=== PATIENT | female | born 1985 | race Caucasian/White ===

== ENCOUNTER 2022-12-09 10:44 | Outpatient (CLI) | payer OTHER, SELFPAY ==
[2022-12-09 11:01] LABS: Basophils Absolute Auto 0.1 K/mm3 (0.0-0.1); Basophils Percent Auto 0.8 % (0.2-1.2); Eosinophils Absolute Auto 0.1 K/mm3 (0-0.3); Eosinophils Percent Auto 2.1 % (0-4.4); Hematocrit 45.6 % (37.0-47.0); Immature Granulocyte Absolute 0.01 K/mm3 (0.00-0.031); Immature Granulocyte Percent A 0.2 % (0-0.5); Lymphocytes Absolute Auto 2.16 K/mm3 (0.9-3.2); Lymphocytes Percent Auto 32.6 % (18.3-44.2); Mean Corpuscular HGB Conc 32.9 g/dl (32-36); Mean Corpuscular Volume 97.2 fl (80-100); Mean Platelet Volume 9.8 fl (7.4-10.4); Monocytes Absolute Auto 0.4 K/mm3 (0.1-0.6); Monocytes Percent Auto 5.7 % (2.6-8.5); Neutrophils Absolute Auto 3.9 K/mm3 (1.3-6.7); Neutrophils Percent Auto 58.6 % (45.5-73.1); Platelet Count Result 224 k/mm3 (150-375); Red Blood Count 4.69 M/mm3 (4.2-5.4); Red Cell Distribution Width 12.2 % (11.5-14.5); White Blood Count 6.6 K/mm3 (4.5-10.0)
[2022-12-09 12:22] LABS: Iron 130 ug/dL (37-170)
[2022-12-09 12:25] LABS: Alanine Aminotransferase 25 U/L (6-35); Albumin Level 4.4 g/dL (3.5-5.1); Alkaline Phosphatase 55 U/L (38-126); Anion Gap 6 mmol/L (8-16); Aspartate Amino Transferase 26 U/L (14-36); Bilirubin,Total 0.5 mg/dL (0.2-1.3); Blood Urea Nitrogen 8 mg/dL (7-17); Carbon Dioxide 30 mmol/L (22-30); Chloride 102 mmol/L (98-107); Estimated Glomerular Filt Rate > 60; Glucose 77 mg/dL (65-110); Potassium 3.8 mmol/L (3.4-5.0); Sodium 138 mmol/L (137-145)
[2022-12-09 12:32] LABS: Percent Iron Saturation 50 % (20-50)
[2022-12-09 13:31] LABS: Folic Acid 8.8 ng/mL (2.76->20)
== END 2022-12-09 10:45 | disposition home or self-care (01) ==
LOC: ANHLAB 10:46
PROVIDERS: PCP Internal Medicine; Visit Provider Internal Medicine Hematology & Oncology
DX: E83.110 Hereditary hemochromatosis (principal); E83.19 Other disorders of iron metabolism
CPT/HCPCS: 36415; 80053; 82607; 82728; 82746; 83540; 83550; 85025

== ENCOUNTER 2023-09-26 14:05 | Outpatient (CLI) | payer OTHER, SELFPAY ==
[2023-09-26 14:19] LABS: Basophils Absolute Auto 0.1 K/mm3 (0.0-0.1); Basophils Percent Auto 0.8 % (0.2-1.2); Eosinophils Absolute Auto 0.2 K/mm3 (0-0.3); Eosinophils Percent Auto 2.4 % (0-4.4); Hematocrit 45.6 % (37.0-47.0); Hemoglobin 15.8 g/dL (12.0-15.0); Immature Granulocyte Absolute 0.02 K/mm3 (0.00-0.031); Immature Granulocyte Percent A 0.3 % (0-0.5); Lymphocytes Percent Auto 26.8 % (18.3-44.2); Mean Corpuscular HGB Conc 34.6 g/dl (32-36); Mean Corpuscular Hemoglobin 32.2 pg (26-34); Mean Corpuscular Volume 92.9 fl (80-100); Mean Platelet Volume 8.9 fl (7.4-10.4); Monocytes Absolute Auto 0.4 K/mm3 (0.1-0.6); Monocytes Percent Auto 5.2 % (2.6-8.5); Neutrophils Absolute Auto 5.1 K/mm3 (1.3-6.7); Neutrophils Percent Auto 64.5 % (45.5-73.1); Platelet Count Result 303 k/mm3 (150-375); Red Blood Count 4.91 M/mm3 (4.2-5.4); Red Cell Distribution Width 12.1 % (11.5-14.5); White Blood Count 7.9 K/mm3 (4.5-10.0)
[2023-09-26 16:44] LABS: Iron 152 ug/dL (37-170)
[2023-09-26 16:47] LABS: Alanine Aminotransferase 23 U/L (6-35); Albumin Level 4.6 g/dL (3.5-5.1); Alkaline Phosphatase 62 U/L (38-126); Anion Gap 9 mmol/L (4-12); Aspartate Amino Transferase 22 U/L (14-36); Bilirubin,Total 0.7 mg/dL (0.2-1.3); Blood Urea Nitrogen 9 mg/dL (7-17); Calcium 9.6 mg/dL (8.4-10.2); Carbon Dioxide 26 mmol/L (22-30); Chloride 102 mmol/L (98-107); Estimated Glomerular Filt Rate > 60; Glucose 99 mg/dL (65-110); Sodium 137 mmol/L (137-145)
[2023-09-26 16:54] LABS: Percent Iron Saturation 55 % (20-50)
== END 2023-09-26 14:06 | disposition home or self-care (01) ==
LOC: ANHLAB 14:07
PROVIDERS: Visit Provider Internal Medicine Hematology & Oncology
DX: E83.110 Hereditary hemochromatosis (principal)
CPT/HCPCS: 36415; 80053; 82728; 83540; 83550; 85025

== ENCOUNTER 2024-03-27 12:54 | Outpatient (CLI) | payer OTHER, SELFPAY ==
[2024-03-27 13:10] LABS: Hematocrit 45.6 % (37.0-47.0); Hemoglobin 15.4 g/dL (12.0-15.0); Mean Corpuscular HGB Conc 33.8 g/dl (32-36); Mean Corpuscular Hemoglobin 31.4 pg (26-34); Mean Corpuscular Volume 93.1 fl (80-100); Mean Platelet Volume 8.6 fl (7.4-10.4); Platelet Count Result 336 k/mm3 (150-375); Red Cell Distribution Width 12.4 % (11.5-14.5); White Blood Count 7.2 K/mm3 (4.5-10.0)
[2024-03-27 19:38] LABS: Iron 123 ug/dL (37-170)
[2024-03-27 19:49] LABS: Percent Iron Saturation 44 % (20-50)
== END 2024-03-27 12:55 | disposition home or self-care (01) ==
LOC: ANHLAB 12:55
PROVIDERS: PCP Internal Medicine; Visit Provider Internal Medicine Hematology & Oncology
DX: E83.110 Hereditary hemochromatosis (principal)
CPT/HCPCS: 36415; 82728; 83540; 83550; 85027

== ENCOUNTER 2024-08-23 10:34 | Outpatient (CLI) | payer OTHER, SELFPAY ==
[2024-08-23 10:48] LABS: Basophils Absolute Auto 0.1 K/mm3 (0.0-0.1); Basophils Percent Auto 1.1 % (0.2-1.2); Eosinophils Absolute Auto 0.2 K/mm3 (0-0.3); Hematocrit 45.2 % (37.0-47.0); Hemoglobin 15.6 g/dL (12.0-15.0); Immature Granulocyte Absolute 0.02 K/mm3 (0.00-0.031); Immature Granulocyte Percent A 0.3 % (0-0.5); Lymphocytes Absolute Auto 2.33 K/mm3 (0.9-3.2); Mean Corpuscular HGB Conc 34.5 g/dl (32-36); Mean Corpuscular Hemoglobin 31.7 pg (26-34); Mean Corpuscular Volume 91.9 fl (80-100); Mean Platelet Volume 8.7 fl (7.4-10.4); Monocytes Absolute Auto 0.4 K/mm3 (0.1-0.6); Monocytes Percent Auto 5.2 % (2.6-8.5); Neutrophils Absolute Auto 4.6 K/mm3 (1.3-6.7); Neutrophils Percent Auto 60.4 % (45.5-73.1); Platelet Count Result 318 k/mm3 (150-375); Red Blood Count 4.92 M/mm3 (4.2-5.4); Red Cell Distribution Width 11.8 % (11.5-14.5); White Blood Count 7.5 K/mm3 (4.5-10.0)
[2024-08-23 13:30] LABS: Iron 195 ug/dL (37-170)
[2024-08-23 13:39] LABS: Percent Iron Saturation 73 % (20-50)
--- OUTSIDE RECORDS SUMMARY | 2024-08-24 11:51 | XMS_ITS | CONTINUITY OF CARE DOCUMENT ---
Author Name angiegerardo angiegerardo Address Unknown Organization [facility] Address [id number] [place] [address] [address] [place] [address] Phone [phone] Care Team Providers Care Foreign Banknote Teller Trader Name Role Phone Berto Woodruff MD Unavailable [phone] ANNA MARIE NELSON MD Unavailable ANNA MARIE NELSON MD Unavailable [phone] PROBLEMS Condition Status Date Provider Notes Dizziness active Berto Woodruff MD Family History of CVA or Stroke: active ? Berto Woodruff MD ENCOUNTERS Date Type Provider Location Encounter Diag nosis - In-person encounter Office Visit Berto Woodruff MD [place] [facility] - In-person encounter Office Visit Berto Woodruff MD [facility] Family History of CVA or Stroke:Dizziness VITAL SIGNS Date Observation Value Provider blood pressure, diastolic 59 mm[Hg] De eduardo Farley blood pressure, systolic 97 mm[Hg] Sandy manning Farley blood pressure, diastolic, left arm 59 mm [Hg] Shaneka Farley blood pressure, systolic, left arm 97 mm[ Hg] Shaneka Farley blood pressure, diastolic, right arm 57 m m[Hg] Shaneka Farley blood pressure, systolic, right arm 101 m m[Hg] Shaneka Farley Body Mass Index (Ratio) 25.06 kg/m2 Brittney calderon pulse rate 84 /min Shaneka Farley oxygen saturation, oximetry 98 % Shaneka Farley respiratory rate E&M 14 /min Shaneka Chengann weight E&M 160 [lb_av] Shaneka Farley Body Mass Index (Ratio) 25.68 kg/m2 [facility] blood pressure, diastolic, left arm 61 mm [Hg] Aneatris Brown blood pressure, systolic, left arm 116 mm [Hg] [facility] blood pressure, diastolic, right arm 75 m m[Hg] [facility] blood pressure, systolic, right arm 111 m m[Hg] [facility] blood pressure, diastolic 75 mm[Hg] [facility] blood pressure, systolic 111 mm[Hg] [facility]ne [facility] pulse rate 79 /min [facility] oxygen saturation, oximetry 99 % Aneatris Dk respiratory rate E&M 18 /min Aneatri s Dk weight E&M 164 [lb_av] [facility] height E&M 67 [in_i] Renae Root ALLERGIES No Known Drug Allergies HISTORY OF MEDICATION USE Medication Status Instructions Dates Provider Indications Com ments MECLIZINE HCL 12.5 MG ORAL TABLET active One tab three times daily Berto Woodruff MD TYLENOL PM EXTRA STRENGTH active 2 tabs as needed Renae Root MOTRIN IB 200 MG ORAL TABLET active 600mg as needed Renae Root SOCIAL HISTORY Date Observation Value Provider social history reviewed E&M reviewed - no changes required Berto Woodruff MD smoking status Never smoker Shaneka stephenson smoking status Never smoker Renae stephenson FAMILY HISTORY Family Member Condition Father Family History of CV A or Stroke: INSURANCE PROVIDERS Payer name Policy type / Coverage type [place] red democr[employer] ID [facility] Other [id number] TREATMENT PLAN Date Name Carotid Duplex Bilat eral Mobile Cardiac Tele Complete Echo
--- OUTSIDE RECORDS SUMMARY | 2024-08-24 11:51 | XMS_ITS | Encounter Summary ---
Author Organization [facility] Address [address] [place] [address] Care Team Providers Care Cell Tuber Hand Name Role Phone Gregg Martinez MD Primary Care Provider [phone] Reason for Visit * Reason Onset Date Comments Feeling weak 08/23/2024 Encounter Details Date Type Department Care Team (Late st Contact Info) Description 08/23/2024 Telephone [facility] Oncology and Hematology - [place] [address] [place] [address] [facility] [address] [place] [address] Ethan Delgado MD [address] [facility] [address] [place] [address] Feeling weak Social History Tobacco Use Types Packs/Day Years Used Date Smoking Tobacco: Never Smokeless Tobacco: Never Alcohol Use Standard Drinks/Week Comments Yes 0 (1 standard drink = 0.6 oz pur e alcohol) occasionlly Comments No Sex and Gender Information Value Date Recorded Sex Assigned at Not on file Legal Sex Female 4:09 PM CDT Gender Identity Not on file Sexual Orientation Not on file documented as of this encounter Miscellaneous Notes * Telephone Encounter - Juan Baez CMA - 08/23/2024 9:26 AM CDT Patient called stating that she hasn't been feeling good. Patient states that she's been feeling very weak and sluggish with a rash on her face along with mild chest pain . Pt has an appointment with us in the beginning of September. I went ahead and told the patient to get her labs drawn and once I get them back I will talk with Dr. Delgado to see what he would like to do. Patient acknowledged understanding documented in this encounter Plan of Treatment Upcoming Encounters Date Type Department Care Team (Late st Contact Info) Description 09/26/2024 2:15 PM CDT Office Visit [facility] Oncology and Hematology - [place] [address] [facility] [address] [place] [address] Ethan Delgado MD [address] [facility] [address] [place] [address] documented as of this encounter Visit Diagnoses Not on filedocumented in this encounter Care Teams Cell Tuber Hand Relationship Specialty [place] [address] [place] [address] PCP - General Internal Medicine 01/06/20 documented as of this encounter
--- OUTSIDE RECORDS SUMMARY | 2024-08-24 11:51 | XMS_ITS | Clinical Summary ---
Author Organization [facility] Justin nguyen Kiersten Address [address] [place] [address] Care Team Providers Care Polisher Aluminum Name Role Phone Gregg Martinez MD Primary Care Provider [phone] Allergies Active Allergy Reactions Criticality Noted Date Comments Shrimp Hives High 01/06/2020 Medications No known medications Active Problems Problem Noted Date Diagnosed Date Hereditary hemochromatosis 01/27/2020 Encounters Date Type Department Care Team Description 08/23/2024 Orders Only [facility] Oncology and Hematology [facility] [address] [place] [address] Ethan Delgado MD Hereditary hemochromatosis (Primary Dx) 08/23/2024 Telephone [facility] Oncology [facility] [address] [place] [address] Ethan Delgado MD Feeling weak 08/06/2024 External Device Data STL ABSTRACTION Provider, Abstract 07/10/2024 External Device Data STL ABSTRACTION Provider, Abstract 07/10/2024 External Device Data STL ABSTRACTION Provider, Abstract 06/29/2024 External Device Data STL ABSTRACTION Provider, Abstract 06/29/2024 External Device Data STL ABSTRACTION Provider, Abstract 06/26/2024 External Device Data STL ABSTRACTION Provider, Abstract 06/12/2024 External Device Data STL ABSTRACTION Provider, Abstract from Last 3 Months Family History Medical History Relation Name Comments Cancer Father Relation Name Status Comments Daughter Alive Father Mother Alive Sister 1 Alive Sister 2 Alive Son Alive Social History Tobacco Use Types Packs/Day Years Used Date Smoking Tobacco: Never Smokeless Tobacco: Never Tobacco Cessation:Counseling Given: Not Answered Alcohol Use Standard Drinks/Week Comments Yes 0 (1 standard drink = 0.6 oz pur e alcohol) occasionlly Comments No Sex and Gender Information Value Date Recorded Sex Assigned at Not on file Legal Sex Female 4:09 PM CDT Gender Identity Not on file Sexual Orientation Not on file Last Filed Vital Signs Vital Sign Reading Time Taken Comments Blood Pressure 109/69 03/28/2024 3:31 PM ANESTHESIOLOGIST ASSISTANT CERTIFIED Pulse 70 03/28/2024 3:31 PM ANESTHESIOLOGIST ASSISTANT CERTIFIED Temperature 36.4 C (97.5 F) 03/28/2024 3:31 PM ANESTHESIOLOGIST ASSISTANT CERTIFIED Respiratory Rate 16 03/28/2024 3:31 PM ANESTHESIOLOGIST ASSISTANT CERTIFIED Oxygen Saturation 98% 03/28/2024 3:31 PM ANESTHESIOLOGIST ASSISTANT CERTIFIED Inhaled Oxygen Concentration - - Weight 96.3 kg (212 lb 6.4 oz) 03/28/2024 3:31 P M ANESTHESIOLOGIST ASSISTANT CERTIFIED Height 170.2 cm (5' 7 ) 01/27/2020 2:02 PM CDT Body Mass Index 33.27 01/27/2020 2:02 PM CDT Plan of Treatment Upcoming Encounters Date Type Department Care Team (Late st Contact Info) Description 09/26/2024 2:15 PM CDT Office Visit [facility] Oncology and Hematology - [place] [address] [facility] [address] [place] [address] Ethan Delgado MD [address] [facility] [address] [place] [address] Health Maintenance Due Date Last Done Comments Pre-Diabetes and Diabetes Screening 1986 DTAP/TDAP/TD VACCINES (1 - Tdap) 2005 HEPATITIS B VACCINES (1 of 3 - 19+ 3-dose series) 2005 HPV/Cotest (21-29) 11/30/2007 HPV/Cotest (30-65) 2016 INFLUENZA VACCINE (#1) 2023 CERVICAL CANCER SCREENING 06/23/2025 PAP SMEAR 06/23/2025 06/23/2022 HPV VACCINES Aged Out No longer eligi ble based on patient's age to complete this topic Procedures Procedure Name Priority Date/Time Associated Diagnosis Comments CBC WITH DIFFERENTIAL Routine 08/23/2024 1:36 PM CDT from Last 3 Months Results * CBC WITH DIFFERENTIAL (08/23/2024 1:36 PM CDT) Blood us Ethan Delgado MD HEMATOLOGY ORDERABLES Final Res ult from Last 3 Months Insurance [place] [id number] Care Teams Polisher Aluminum Relationship Specialty Start Date End Date Gregg Martinez MD [address] [place] [id number] PCP - General Internal Medicine 01/06/20
--- OUTSIDE RECORDS SUMMARY | 2024-08-24 11:51 | XMS_ITS | Encounter Summary ---
Author Organization [facility] Address [address] [place] [address] Care Team Providers Care Log Hauler Name Role Phone Gregg Martinez MD Primary Care Provider [phone] Encounter Details Date Type Department Care Team (Late Contact Info) Description 08/23/2024 Orders Only [facility] Oncology and Hematology [address] [place] [address] Ethan Delgado MD [facility] [address] [place] [address] Hereditary hemochromatosis (Primary Dx) Social History Tobacco Use Types Packs/Day Years [...] on file documented as of this encounter Plan of Treatment Upcoming Encounters Date Type Department Care Team (Late Contact Info) Description 09/26/2024 2:15 PM CDT Office Visit [facility] Oncology and Hematology - [place] [address] [place] [address] Ethan Delgado MD [address] [place] [address] Scheduled Orders Name Type Priority Associated Diagnoses Orde r Schedule CBC WITH DIFFERENTIAL Lab Routine Hereditary hemochromatosis Expected: 08/23/2024, Expires: 08/23/2025 FERRITIN Lab Routine Hereditary hemochromatosis Expected: 08/23/2024, Expires: 08/23/2025 IRON, TIBC, AND PERCENT SATURATION Lab Routine Hereditary hemochromatosis Expected: 08/23/2024, Expires: 08/23/2025 documented as of this encounter Procedures Procedure Name Priority Date/Time Associated Diagnosis Comments CBC WITH DIFFERENTIAL Routine 08/23/2024 1:36 PM CDT documented in this encounter Results * CBC WITH DIFFERENTIAL (08/23/2024 1:36 PM CDT) Blood Ethan Delgado MD HEMATOLOGY ORDERABLES Final Res ult documented in this encounter Visit Diagnoses Diagnosis Hereditary hemochromatosis- Primary documented in this encounter Care Teams Log Hauler Relationship Specialty Start Date End Date Gregg Martinez MD [address] [place] [phone] PCP - General Internal Medicine 01/06/20 documented as of this encounter
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
--- OUTSIDE RECORDS SUMMARY | 2024-08-24 11:52 | XMS_ITS | Clinical Summary ---
Author Organization [facility] Address [address] [place] [address] Phone Care Team Providers Care Principal Ios Developer Name Role Phone Gregg Martinez MD Primary Care Provider [phone] Social History Tobacco Use Types Packs/Day Years Used Date Smoking Tobacco: Never Assessed Comments Unknown Sex and Gender Information Value Date Recorded Sex Assigned at Not on file Legal Sex Female 11:36 PM CDT Gender Identity Not on file Sexual Orientation Not on file Plan of Treatment Health Maintenance Due Date Last Done Comments Hepatitis C Virus (HCV) Screening 1986 TdaP Immunization 1986 Hepatitis B Immunization (1 of 3 - 19+ 3-dose series) 2005 Pap Smear 11/30/2007 Cervical Cancer Screening (CCS) 2016 HPV/Cotest 2016 Influenza Immunization (#1) 2023 SARS-COV-2 Immunization ( season) 2023 Respiratory Syncytial Virus (RSV) Immunization (Adult) (1 - 1-dose 75+ series) 2061 Meningococcal Immunization (ACWY) Aged Out No longer eligible based on patient's age to complete this topic Pneumococcal Immunization Combined Aged Out No longer eligible based on patient's age to complete this topic Rotavirus Immunization Aged Out No lo nger eligible based on patient's age to complete this topic Insurance [facility] Care Teams Principal Ios Developer Relationship Specialty Start Date End Date Gregg Martinez MD [address] [place] [address] PCP - General Internal Medicine 09/20/23
--- OUTSIDE RECORDS SUMMARY | 2024-08-24 11:52 | XMS_ITS | Data Portability ---
Author Organization [facility] Address [address] [place] [address] Care Team Providers Care Online Editor Name Role Phone ANNA MARIE NELSON Primary Care Provider [phone] Assessment Encounter Date Assessment Date Assessment LastModified by Organization Details LastModified Time 12/19/2019 12/19/2019 Time spent in visit is a total of 15 mins with at least 50% of visit consisting of counseling and review of plan of care. [email or web address] Not available 12/19/2019 12:29:39 06/23/2022 06/23/2022 Annual gynecological exam performed. Patient will come back in a year unless there are new symptoms. [email or web address] Not available 06/23/2022 09:45:45 Plan of Treatment Reminders Order Date Submit Date Provider Last Modified By Organization Details Last Modified Time Details Appointments None recorded. Lab vitamin B12, serum 2019 020 [place] [facility]), [address] [facility] , [address], [place], [address], 0 00:37:32 CBC w/ auto diff [address] [facility] ([facility]), [address] [facility] [address] , [address], [place], [address], 0 00:37:30 ferritin, serum or plasma 2019 020 [place] [facility]), [address] [facility] [address], [place], [address], 0 00:37:33 folate, serum 2019 020 [facility] ([facility]), [address] [facility] [address], [place], [address], 0 00:37:33 TIBC (total iron-bindin g capacity), serum 2019 020 [facility] ([facility]), [address] [facility] [address], [place], [address], 0 00:37:32 iron, serum 2019 020 [facility] ([facility]), [address] [facility] [address], [place], [address], 0 00:37:31 retic count, blood 2019 020 [place] [facility] ([facility]), [address] [facility] [address], [place], [address], 0 00:37:30 CMP, serum or plasma 2019 020 [facility] ([facility]), [address] [facility] [address], [place], [address], 0 00:37:31 CBC 2019 020 [facility] ([facility]), [address] [facility] [address], [place], [address], 0 17:34:17 TSH, serum or plasma 2019 020 [facility] ([facility]), [address] [facility] , [address], [place], [address], 0 00:37:34 vitamin D, 25-hydroxy, total, serum 2019 020 [facility]), [address] [facility] [address] , [address], [place], [address], 0 00:37:34 HbA1c (hemoglobin A1c), blood 2019 020 [facility]), [address] [facility] [address] , [address], [place], [address], 0 00:37:33 Referral urogynecolo gist referral 2022 023 MOSESAURA Farley MD, [address] [place] [address] [address], [address], [place], [address], 3 05:01:35 pelvic floor therapy referral 2022 023 [facility], [address], [address], [place], [address], 3 05:01:35 Procedures None recorded. Surgeries None recorded. Imaging None recorded. Medication Orders Xulane 150 mcg-35 mcg/24 hr transdermal patch 2022 023 [id number], [address] [place], [address], 3 10:15:42 Patient TargetsNo targets recorded. Patient Instructions Encounter Date Encounter Id Patient Instructions Last Modified By Organization Details Last Modified Time 12/10/2019 [id number] [email or web address] Not available 14:42:34 12/19/2019 [id number] [email or web address] Not available 12:29:54 Reason for Referral Urogynecologist Referral for Female stress incontinence Referring Physician: Marianela Chowdhury, [employer], Encounter Date: 06/23/2022 Pelvic Floor Therapy Referra l for Female stress incontinence Stress incontinence Referring Physician: Marianela Chowdhury, [employer], Encounter Date: 06/23/2022 Results Created Date Observation Date Name Description Value Unit Range Abnormal Flag Note LastModifiedBy Organization Detail LastModifiedTime 12/10/19 20 12/11/2019 CBC w/ auto diff WBC 5.4 K/uL 3.8-11 .5 Not Available [facility]) [address] [place] [address] Dr [address], [place], [address], 12/12/2019 00:37:29 12/10/1912/11/2019 CBC w/ auto diff red blood cell count (RBC) 4.37 M/mm3 3.60-5 .30 Not Available [facility]) [address] [place] [address] Dr [address], [place], [address], 12/12/2019 00:37:29 12/10/1912/11/2019 CBC w/ auto diff hemoglobin (HGB) 14.5 gm/dL 11.5-1 5.5 Not Available [facility]) [address] [place] [address] Dr [address], [place], [address], 12/12/2019 00:37:29 12/10/1912/11/2019 CBC w/ auto diff hematocrit (HCT) 41.5 % 35.2-4 6.4 Not Available [facility] ([facility]) [address] [place] [address] Dr [address], [place], [address], 12/12/2019 00:37:29 12/10/1912/11/2019 CBC w/ auto diff MCV 95.0 fL 79.0-9 9.0 Not Available [facility]) [address] [place] [address] Dr [address]ume, [place], [address], 12/12/2019 00:37:29 12/10/19 20 12/11/2019 CBC w/ auto diff MCH 33.2 pg 26.9-3 5.0 Not Available [facility] ([facility]) [address] [place] [address] Dr [address], [place], [address], 12/12/2019 00:37:29 12/10/19 20 12/11/2019 CBC w/ auto diff MCHC 34.9 g/dL 30.4-3 4.8 high Not Available [facility] ([facility]) [address] [place] [address] Dr [address], [place], [address], 12/12/2019 00:37:29 12/10/1912/11/2019 CBC w/ auto diff RDW 41.7 fL 38.6-5 3.8 Not Available [facility] ([facility]) [address] [place] [address] Dr [address], [place], [address], 12/12/2019 00:37:29 12/10/19 20 12/11/2019 CBC w/ auto diff platelet count 291 K/cum m 137-39 7 Not Available [facility] ([facility]) [address] [place] [address] Dr [address], [place], [address], 12/12/2019 00:37:29 12/10/19 20 12/11/2019 CBC w/ auto diff neutrophils automated 64.1 % 41.0-7 7.0 Not Available [facility] ([facility]) [address] [place] [address] Dr [address], [place], [address], 12/12/2019 00:37:29 12/10/19 20 12/11/2019 CBC w/ auto diff lymphocytes automated 25.8 % 14.0-4 8.0 Not Available [facility] ([facility]) [address] [place] [address] Dr [address], [place], [address], 12/12/2019 00:37:29 12/10/19 20 12/11/2019 CBC w/ auto diff monocytes automated 6.4 % 4.0-13 .0 Not Available [facility]) [address] [place] [address] Dr [address]ume, [place], [address], 12/12/2019 00:37:29 12/10/19 20 12/11/2019 CBC w/ auto diff eosinophils automated 2.8 % 0.0-8. 0 Not Available [facility]) [address] [place] [address] Dr [address]ume, [place], [address], 12/12/2019 00:37:29 12/10/1912/11/2019 CBC w/ auto diff basophils automated 0.7 % 0.0-1. 5 Not Available [facility] ([facility]) [address] [place] [address] Dr [address]illaume, [place], [address], 12/12/2019 00:37:29 12/10/19 20 12/11/2019 CBC w/ auto diff immature granulocyte automated 0.2 % 0.0-1. 0 Not Available [facility]) [address] [place] [address] Dr [address], [place], [address], 12/12/2019 00:37:29 12/10/19 20 12/11/2019 retic count , blood reticulocyte count 1.6 % 0.5-2. 1 Not Available [facility]) [address] [place] [address] Dr [address]ume, [place], [address], 12/12/2019 00:37:30 12/10/19 20 12/11/2019 retic ulocy te count , absol [place], blood corrected retic count 1.6 % 0.5-2. 1 Corre cted Retic Count = Autom ated Retic Count * HCT / 42 Not Available [facility]) [address] [place] [address] Dr [address], [place], [address], 12/12/2019 00:37:30 12/10/19 20 12/11/2019 CMP, serum or plasm a sodium 143 mEq/L 135-14 5 Not Available [facility] ([facility]) [address] [place] [address] Dr [address], [place], [address], 12/12/2019 00:37:31 12/10/19 20 12/11/2019 CMP, serum or plasm a potassium 4.2 mEq/L 3.5-5. 3 Not Available [facility] ([facility]) [address] [place] [address] Dr [address]ume, [place], [address], 12/12/2019 00:37:31 12/10/1912/11/2019 CMP, serum or plasm a chloride 107 mEq/L 97-108 Not Available [facility] ([facility]) [address] [place] [address] Dr [address], [place], [address], 12/12/2019 00:37:31 12/10/19 20 12/11/2019 CMP, serum or plasm a CO2 26 mEq/L 22-32 Not Available [facility] ([facility]) [address] [place] [address] Dr [address]ume, [place], [address], 12/12/2019 00:37:31 12/10/19 20 12/11/2019 CMP, serum or plasm a glucose 89 mg/dL 65-99 Not Available [facility]) [address] [place] [address] Dr [address]ume, [place], [address], 12/12/2019 00:37:31 12/10/19 20 12/11/2019 CMP, serum or plasm a BUN 12 mg/dL 6-20 Not Available [facility] ([facility]) [address] [place] [address] Dr [address]ume, [place], [address], 12/12/2019 00:37:31 12/10/19 20 12/11/2019 CMP, serum or plasm a creatinine 0.80 mg/dL 0.50-1 .00 Not Available [facility] ([facility]) [address] [place] [address] Dr [address], [place], [address], 12/12/2019 00:37:31 12/10/1912/11/2019 CMP, serum or plasm a calcium 9.1 mg/dL 8.6-10 .4 Not Available [facility]) [address] [place] [address] Dr [address]ume, [place], [address], 12/12/2019 00:37:31 12/10/1912/11/2019 CMP, serum or plasm a protein 6.5 g/dL 6.0-8. 3 Not Available [facility]) [address] [place] [address] Dr [address]ume, [place], [address], 12/12/2019 00:37:31 12/10/1912/11/2019 CMP, serum or plasm a albumin 4.5 g/dL 3.5-5. 3 Not Available [facility]) [address] [place] [address] Dr [address], [place], [address], 12/12/2019 00:37:31 12/10/1912/11/2019 CMP, serum or plasm a alkaline phosphatase 63 IU/L 35-121 Not Available [facility]) [address] [place] [address] Dr [address]ume, [place], [address], 12/12/2019 00:37:31 12/10/1912/11/2019 CMP, serum or plasm a ALT (SGPT) 39 IU/L <5-47 Not Available [facility]) [address] [place] [address] Dr Guillaume, [place], [address], 12/12/2019 00:37:31 12/10/1912/11/2019 CMP, serum or plasm a AST (SGOT) 25 IU/L <5-40 Not Available [facility]) [address] [place] [address] Dr [address], [place], [address], 12/12/2019 00:37:31 12/10/19 20 12/11/2019 CMP, serum or plasm a bilirubin, total 0.5 mg/dL <0.2-1 .2 Not Available [facility]) [address] [place] [address] Dr [address]ume, [place], [address], 12/12/2019 00:37:31 12/10/19 20 12/11/2019 CMP, serum or plasm a A/G ratio 2.3 mg/dL 1.1-2. 5 Not Available [facility]) [address] [place] [address] Dr [address]ume, [place], [address], 12/12/2019 00:37:31 12/10/19 20 12/11/2019 GFR, estim ated (eGFR ), serum estimated GFR (black) 112 mL/mi n/1.7 3m2 >59 Not Available [facility]) [address] [place] [address] Dr [address], [place], [address], 12/12/2019 00:37:31 12/10/19 20 12/11/2019 GFR, estim ated (eGFR ), serum estimated GFR (other) 97 mL/mi n/1.7 3m2 >59 GFR Categ ories in Chron ic Kidne y Disea se (CKD) GFR Categ ory GFR (mL/m in/1. 73 sq. meter s) Inter preta tion G1 90 or great er Cecelia l or high* G2 60-89 Mild decre ase* G3a 45-59 Mild to moder ate decre ase G3b 30-44 Moder ate to sever e decre ase G4 15-29 Sever e decre ase G5 14 or less Kidne y failu re *In the absen ce of anna y damag e, neith er GFR categ ory G1 or G2 fulfi ll the crite [place] for CKD (Kidn ey Int Suppl 2013; 3.1-1 50) The CKD-E PI calcu latio n is inten ded for use in patie nts 18 years of age and older . Decre ased calcu latio n accur acy may be seen in patie nts takin g medic ation s that affec t renal excre tion, or in those patie nts with extre mes in muscl e mass or diet. Not Available [facility] ([facility]) [facility] [address], [place], [address], 12/12/2019 00:37:31 12/10/19 20 12/11/2019 iron, serum iron 233 ug/dL 37-145 high Not Available [facility] ([facility]) [address] [place] [address] Dr Guillaume, [place], [address], 12/12/2019 00:37:31 12/10/19 20 12/11/2019 TIBC (tota l iron- josias ng capac ity), serum iron binding cap See Below ug/dL 250-45 0 low Unabl e to calcu late IBC when IRON or UIBC is outsi de instr ument detec table limit s. Not Available [facility] ([facility]) [address] [place] [address] Dr [address]ume, [place], [address], 12/12/2019 00:37:32 12/10/19 20 12/11/2019 iron satur ation , serum percent saturation See Below % 15-50 low Unabl e to calcu late SAT when IRON or UIBC is outsi de instr ument detec table limit s Not Available [facility] ([facility]) [address] [place] [address] Dr Gu[address]ume, [place], [address], 12/12/2019 00:37:32 12/10/19 20 12/11/2019 vitam in B12, serum vitamin B12 829 pg/mL 232-12 45 Not Available [facility] ([facility]) [address] [place] [address] Dr [address], [place], [address], 12/12/2019 00:37:32 12/10/19 20 12/11/2019 diane tin, serum or plasm a ferritin 99.4 NG/mL 13.0-1 50.0 Not Available [facility]) [address] [place] [address] Dr Guillaume, [place], [address], 12/12/2019 00:37:33 12/10/19 20 12/11/2019 folat e, serum folate 12.50 NG/mL >4.59 Not Available [facility]) [address] [place] [address] Dr [address]illaume, [place], [address], 12/12/2019 00:37:33 12/10/19 20 12/11/2019 HbA1c (hemo globi n A1c), blood hemoglobin A1C 4.3 % <5.7 The follo wing HbA1c range s recom jesenia d by the Ameri can Diabe kamar Assoc iatio n (ADA) may be used as an aid in the diagn osis of diabe kamar melli tus. HA1c Armando mckeon Diagn osis >=6.5 % Diabe tic 5.7% - 6.4% Pre-D iabet ic <5.7% Non-D iabet ic Not Available [facility] ([facility]) [address] [place] [address] Dr Guillaume, [place], [address], 12/12/2019 00:37:33 12/10/19 20 12/11/2019 estim ated avera ge gluco se estimated average glucose 77 mg/dL [place] ge Gluco se is calcu lated using the equat ion AG = (28.7 x HgbA1 c) - 46.7 based on the guide lines estab lishe d by the ADA. Not Available [facility] ([facility]) [address] [place] [address] Dr Guillaume, [place], [address], 12/12/2019 00:37:34 12/10/19 20 12/11/2019 TSH, serum or plasm a TSH reflex to FT4 1.81 mU/L 0.27-4 .20 Not Available [facility]) [address] [facility] [address], [place], [address], 12/12/2019 00:37:34 12/10/19 20 12/11/2019 vitam in D, 25-hy droxy , total , serum vitamin D 25-hydroxy 32.5 NG/mL 30.0-1 00.0 Inter preta tion of Vitam in D 25 OH: < 20 ng/mL - Defic iency 20 - 29 ng/mL - Insuf ficie ncy 30 - 100 ng/mL - Suffi cienc y > 100 ng/mL - Super -ther apeut ic- toxic ity may occur above this level . Clini kassandra corre latio n requi red. Not Available [facility]) [address] [facility] [address], [place], [address], 12/12/2019 00:37:34 Result Notes None recorded. Problems Name Problem SNOMED Code Status Onset Date Resolution Date Notes Provider Name and Address Organization Details Recorded Time Contact dermatiti s 50774829 Active 2012 Contact dermatitis ;Recorded Elsewhere: No Locatio n: [facility] rce: EHR Chroni c: N Practice ID: 0001 Billa ble Time: 04:00:00 PM Not Available [facility] 0 15:40:09 Headache [id number] Active 2012 Headache;R ecorded Elsewhere: No Locatio n: [facility] rce: EHR Chroni c: N Practice ID: 0001 Billa ble Time: 08:30:00 AM Not Available [facility] 0 15:40:09 Pelvic and perineal pain [id number] Active 2014 Pelvic and perineal pain;Recor ded Elsewhere: No Locatio n: [facility] rce: EHR Chroni c: N Practice ID: 0001 Billa ble Time: 08:45:00 AM Not Available [facility] 0 15:40:09 Screening for malignant neoplasm of cervix Active 2013 Screening for malignant neoplasms of the cervix;Rec orded Elsewhere: No Locatio n: [facility] rce: EHR Chroni c: N Practice ID: 0001 Billa ble Time: 11:00:00 AM Not Available [facility] 0 15:40:10 Candidias is [id number] Active 2013 Candidiasi s of unspecifie d site;Recor ded Elsewhere: No Locatio n: [facility] rce: EHR Chroni c: Y Practice ID: 0001 Billa ble Time: 11:15:00 AM Not Available [facility] 0 15:40:10 Postpartu m care Active 2010 Routine follow-up; Recorded Elsewhere: No Locatio n: [facility] rce: EHR Chroni c: N Practice ID: 0001 Billa ble Time: 02:15:00 PM Not Available [facility] 0 15:40:[address] Concept Active 2018 Encntr for silk brusher exam (general) (routine) w/o abn findings;R ecorded Elsewhere: No Locatio n: [facility] rce: EHR Chroni c: N Practice ID: 0001 Billa ble Time: 09:30:00 AM Not Available [facility] 0 15:40:10 Specializ ed medical examinati on Active 2011 Gynecologi kassandra Examinatio n;Recorded Elsewhere: No Locatio n: [facility] rce: EHR Chroni c: N Practice ID: 0001 Billa ble Time: 10:15:00 AM Not [facility] 0 15:40:10 Syphilis test finding [id number] Active 2014 Encntr screen for infections w sexl mode of transmiss; Recorded Elsewhere: No Locatio n: [facility] rce: EHR Chroni c: N Practice ID: 0001 Billa ble Time: 09:30:00 AM Not Available [facility] 0 15:40:10 Infection screening Active 2014 Encounter for screening for oth infec/para stc diseases;R ecorded Elsewhere: No Locatio n: [facility] rce: EHR Chroni c: N Practice ID: 0001 Billa ble Time: 09:30:00 AM Not Available [facility] 0 15:40:10 Dyspareun ia [id number] Active 2014 Dyspareuni a;Recorded Elsewhere: No Locatio n: [facility] rce: EHR Chroni c: N Practice ID: 0001 Billa ble Time: 08:15:00 AM Not Available [facility] 0 15:40:10 Right upper quadrant pain 518754510 Active 2013 RUQ pain;Recor ded Elsewhere: No Locatio n: [facility] rce: EHR Chroni c: N Practice ID: 0001 Billa ble Time: 08:15:00 AM Not Available [facility] 0 15:40:10 Dysfuncti onal uterine bleeding Active 2010 Other disorders of menstruati on and other abnormal bleeding from female genital tract;Mirza rded Elsewhere: No Locatio n: [facility] rce: EHR Chroni c: N Practice ID: 0001 Billa ble Time: 02:15:00 PM Not Available [facility] 0 15:40:10 test positive [id number] Active 2012 examinatio n or test, positive result;Rec orded Elsewhere: No Locatio n: [facility] rce: EHR Chroni c: N Practice ID: 0001 Billa ble Time: 10:00:00 AM Not Available [facility] 0 15:40:11 Anxiety state [id number] Active 2011 Anxiety;Re corded Elsewhere: No Locatio n: [facility] rce: EHR Chroni c: N Practice ID: 0001 Billa ble Time: 09:30:00 AM Not Available [facility] 0 15:40:11 Routine care Active 2012 Supervisio n of other normal ; Recorded Elsewhere: No Locatio n: [facility] rce: EHR Chroni c: N Practice ID: 0001 Billa ble Time: 04:00:00 PM Not Available [facility] 0 15:40:[address] Concept Active 2014 Encntr for silk brusher exam (general) (routine) w abnormal findings;R ecorded Elsewhere: No Locatio n: [facility] rce: EHR Chroni c: N Practice ID: 0001 Billa ble Time: 09:30:00 AM Not Available [facility] 0 15:40:11 Mental disorder during - baby delivered [id number] Active 2011 mental disorders of mother;Rec orded Elsewhere: No Locatio n: [facility] rce: EHR Chroni c: N Practice ID: 0001 Billa ble Time: 10:15:00 AM Not Available [facility] 0 15:40:11 Ultrasono graphy Active 2012 screening for malformati on using ultrasonic s;Recorded Elsewhere: No Locatio n: [facility] rce: EHR Chroni c: N Practice ID: 0001 Billa ble Time: 10:15:00 AM Not Available [facility] 0 15:40:11 screening Active 2012 screening for malformati on using ultrasonic s;Recorded Elsewhere: No Locatio n: [facility] rce: EHR Chroni c: N Practice ID: 0001 Billa ble Time: 10:15:00 AM Not Available [facility] 0 15:40:11 Congenita l malformat ion 114347105 Active 2012 screening for malformati on using ultrasonic s;Recorded Elsewhere: No Locatio n: [facility] rce: EHR Chroni c: N Practice ID: 0001 Billa ble Time: 10:15:00 AM Not Available [facility] 0 15:40:11 Pain of breast 49647090 Active 2010 Mastodynia ;Recorded Elsewhere: No Locatio n: [facility] rce: EHR Chroni c: N Practice ID: 0001 Billa ble Time: 02:00:00 PM Not Available [facility] 0 15:40:11 Dysuria 12575972 Active 2014 Dysuria;Re corded Elsewhere: No Locatio n: [facility] rce: EHR Chroni c: N Practice ID: 0001 Billa ble Time: 09:30:00 AM Not Available [facility] 0 15:40:11 Breast engorgeme nt in , the puerperiu m or - delivered with complicat ion 866272880 Active 2010 engorgemen t of breasts associated with childbirth ;Recorded Elsewhere: No Locatio n: [facility] rce: EHR Chroni c: N Practice ID: 0001 Billa ble Time: 02:00:00 PM Not Available [facility] 0 15:40:12 Right lower quadrant pain 433191835 Active 2014 RLQ pain;Recor ded Elsewhere: No Locatio n: [facility] rce: EHR Chroni c: N Practice ID: 0001 Billa ble Time: 08:45:00 AM Not Available [facility] 0 15:40:12 Amenorrhe a 59826644 Active 2012 Absence of menstruati on;Recorde d Elsewhere: No Locatio n: [facility] rce: EHR Chroni c: N Practice ID: 0001 Billa ble Time: 10:00:00 AM Not Available [facility] 0 15:40:12 test negative 192758326 Active 2013 examinatio n or test, negative result;Rec orded Elsewhere: No Locatio n: [facility] rce: EHR Chroni c: N Practice ID: 0001 Billa ble Time: 08:15:00 AM Not Available [facility] 0 15:40:12 Nausea 148282885 Active 2012 Nausea alone;Mirza rded Elsewhere: No Locatio n: [facility] rce: EHR Chroni c: N Practice ID: 0001 Billa ble Time: 10:00:00 AM Not Available [facility] 0 15:40:12 Primigrav jennifer 064732779 Active 2010 Supervisio n of normal first ; Practice ID: 0001 Not Available [facility] 0 15:40:12 anatomy study Active 2010 [facility] SURVEY;Pra ctice ID: 0001 Not Available [facility] 0 15:40:12 Premature labor 8456360 Active 2010 LABOR;Prac rena ID: 0001 Not Available [facility] 0 15:40:13 Open wound of vulva 819151048 Active 2010 Open wound of vulva, without mention of complicati on;Recorde d Elsewhere: No Locatio n: [facility] rce: EHR Chroni c: N Practice ID: 0001 Billa ble Time: 10:45:00 AM Not Available [facility] 0 15:40:13 Leukorrhe a 861548233 Active 2012 Leukorrhea , not specified as infective; Practice ID: 0001 Not Available [facility] 0 15:40:15 Complicat ion related to Active 2012 Weight Insufficie nt Antepartum ;Practice ID: 0001 Not Available [facility] 0 15:40:15 Delivery normal 92290270 Active 2010 Normal delivery;P ractice ID: 0001 Not Available [facility] 0 15:40:16 Single live from teran 121236463 Active 2010 Mother with single liveborn;P ractice ID: 0001 Not Available [facility] 0 15:40:16 Ill-defin ed intestina l infection Active 2011 No Show Fee;Scott ce ID: 0001 Not Available [facility] 0 15:40:17 Problem Notes None recorded. Procedures Surgical History Date Name Laterality Status Provider Name and Address Organization Details Recorded Time 01/03/20 19 Date of Last Pap Smear completed Annie Dyer [facility] 12/19/2019 11:55:49 Cholecystectomy completed Smiley Montelongo [facility] 12/10/2019 14:28:39 Imaging Results None recorded. Procedure Notes None recorded. Medical Equipment None Reported. Allergies No known drug allergies Medications Name Sig Start Date Stop Date Status Note LastModified by Organization Details LastModified Time amoxicill in 500 mg capsule 12/09 completed Not Available Not Available Not Available bupropion HCl SR 150 mg tablet,12 hr sustained -release 12/09 completed Not Available Not Available Not Available venlafaxi ne ER 75 mg capsule,e xtended release 24 hr TAKE 1 CAPSULE BY MOUTH EVERY DAY IN THE MORNING active Not Available Not Available No t Available clindamyc in HCl 300 mg capsule TAKE 1 CAPSULE BY MOUTH THREE TIMES A DAY FOR 7 DAYS 06/23 completed Not Available Not Available Not Available trazodone 50 mg tablet TAKE 1 TABLET BY MOUTH EVERY DAY AT BEDTIME NEEDED FOR 30 DAYS active Not Available Not Available No t Available ibuprofen 800 mg tablet TAKE 1 TABLET BY MOUTH THREE TIMES A DAY 06/23 completed Not Available Not Available Not Available fluconazo le 150 mg tablet TAKE 1 TABLET BY MOUTH EVERY DAY 06/23 completed Not Available Not Available Not Available Vicodin 5 mg-500 mg tablet take 1 tablet by oral route 4 - 6 hours as needed for pain 02/16 completed Prescrib ed Elsewher e: No Locat ion: [facility] odify By: kyree cuellounter DateTime : 01/25/20 11 10:45:00 AM Not Available Not Available Not Available hydrocodo ne 5 mg-acetam inophen 325 mg tablet 12/09 completed Not Available Not Available Not Available venlafaxi ne ER 150 mg capsule,e xtended release 24 hr TAKE 1 CAPSULE BY MOUTH EVERY DAY IN THE MORNING FOR 90 DAYS 06/23 completed Not Available Not Available Not Available phentermi ne 37.5 mg tablet TAKE 1 TABLET BY MOUTH EVERY DAY 2 HOURS AFTER BREAKFAS T 06/23 completed Not Available Not Available Not Available acetamino phen 300 mg-codein e 30 mg tablet 12/09 completed Not Available Not Available Not Available Wellbutri n SR 100 mg tablet, 12 hr sustained -release take 1 tablet by oral route 2 times every day 06/23 completed Prescrib ed Elsewher e: Yes Loca tion: [facility] odify By: aron Jansen ncounter DateTime : 01/03/20 19 09:30:00 AM Not Available Not Available Not Available tramadol 50 mg tablet take 1 tablet by oral route every 6 hours as needed 01/02 completed Prescrib ed Elsewher e: Yes Loca tion: Shahbaz jansen [facility] odify By: aron Jansen ncounter DateTime : 02/09/20 17 02:15:00 PM Not Available Not Available Not Available Procardia 10 mg capsule take 1 capsule (10MG) by oral route q 4-hrs 02/16 completed Prescrib ed Elsewher e: No Locat ion: Shahbaz jansen [facility] odify By: kyree Jansen ncounter DateTime : 12/24/19 11 11:44:16 AM Not Available Not Available Not Available Zofran 4 mg tablet take 2 tablet by oral route every 8 hours for 2 days 02/09 completed Prescrib ed Elsewher e: Yes Loca tion: Shahbaz jansen [facility] odify By: alexander holman DateTime : 02/09/20 17 02:15:00 PM Not Available Not Available Not Available Metrogel Vaginal 0.75 % (37.5 mg/5 gram) insert 1 applicat orful by vaginal route every day at bedtime 01/30 completed Prescrib ed Elsewher e: No Locat ion: Shahbaz jansen [facility] odify By: abad baugh DateTime : 01/23/20 14 12:48:57 PM Not Available Not Available Not Available Zoloft 50 mg tablet take 1 tablet (50MG) by oral route every day 10/16 completed Prescrib ed Elsewher e: No Locat ion: Shahbaz jansen [facility] odify By: marco Peters ter DateTime : 05/25/19 12 09:45:00 AM Not Available Not Available Not Available Diflucan 100 mg tablet take 1 tablet (100MG) by oral route every day 12/24 completed Prescrib ed Elsewher e: No Locat ion: Shahbaz jansen [facility] odify By: cleopatra Jansen ncounter DateTime : 07/19/19 14 11:15:00 AM Not Available Not Available Not Available hydrocodo ne 7.5 mg-acetam inophen 325 mg tablet TAKE 1 TABLET BY MOUTH EVERY 6 HOURS NEEDED FOR PAIN 06/23 completed Not Available Not Available Not Available erythromy kenia 5 mg/gram (0.5 %) eye ointment LOCATION : LEFT EYE. APPLY SMALL AMOUNT TO EYE AND EYE LID 3 TIMES A DAY FOR 1 WEEK 06/23 completed Not Available Not Available Not Available dexametha sone 4 mg tablet 12/09 completed Not Available Not Available Not Available methylpre dnisolone 4 mg tablets in a dose pack PLEASE SEE ATTACHED FOR DETAILED DIRECTIO NS 06/23 completed Not Available Not Available Not Available Vitamin D2 1,250 mcg (50,000 unit) capsule take 1 capsule (36227VU ITS) by oral route every week 07/02 completed Prescrib ed Elsewher e: No Locat ion: [facility] odify By: ирина Jansen [place] DateTime : 11/29/19 13 01:20:03 PM Not Available Not Available Not Available amoxicill in 875 mg-potass ium clavulana te 125 mg tablet 12/09 completed Not Available Not Available Not Available Depo-Prov era 150 mg/mL intramusc ular syringe inject 1 millilit er (150MG) by intramus cular route every 3 months 05/25 completed Prescrib ed Elsewher e: No Locat ion: [facility] odify By: kyree [place] DateTime : 02/17/20 11 02:15:00 PM Not Available Not Available Not Available topiramat e 50 mg tablet 12/09 completed Not Available Not Available Not Available Wellbutri n SR 06/23 completed Not Available Not Available Not Available aripipraz ole 2 mg tablet TAKE 1 TABLET BY MOUTH EVERYDAY AT BEDTIME active Not Available Not Available No t Available quetiapin e 50 mg tablet TAKE 1 TABLET BY MOUTH EVERYDAY AT BEDTIME 06/23 completed Not Available Not Available Not Available CitraNata l DHA (New Formula) 27 mg-1 mg-50 mg-250 mg oral pack take 1 Capsule by Oral route every day 12/24 completed Prescrib ed Elsewher e: No Locat ion: [facility] odify By: cleopatra fernandez DateTime : 05/24/19 14 03:15:39 PM Not Available Not Available Not Available 10 mg-400 mcg capsule 10/16 completed Prescrib ed Elsewher e: Yes Loca tion: Shahbaz jansen [facility] odify By: kyree fernandez DateTime : 05/04/19 12 10:15:00 AM Not Available Not Available Not Available Triveen-D uo DHA 29 mg-1 mg-400 mg oral pack take 1 by Oral route every day 05/24 completed Prescrib ed Elsewher e: No Locat ion: Paul justyna [facility] odify By: benjamín fernandez DateTime : 10/17/19 13 10:00:00 AM Not Available Not Available Not Available WATER ANALYST-PNV-DH A 28 mg iron-1 mg-200 mg capsule take 1 capsule by oral route every day 05/24 completed Prescrib ed Elsewher e: No Locat ion: Paul justyna [facility] odify By: benjamín fernandez DateTime : 10/17/19 13 10:00:00 AM Not Available Not Available Not Available Zafemy 150 mcg-35 mcg/24 hr transderm al patch APPLY 1 PATCH TOPICALL Y WEEKLY FOR 3 WEEKS, OFF FOR 1 WEEK. REPEAT CYCLE. active Not Available Not Available No t Available Vitals Date Recorded Body height Body mass index (BMI) Body weight Systolic blood pressure Diastolic blood pressure Provider Name and Address Organization Details Last Updated DateTime 06/23/2022 170.18 cm 29.9 kg/m2 79855.14 g 120 mm[Hg] 82 mm[Hg] Michelle Fisher [facility] 3 09:45:56 Date Recorded Body height Body mass index (BMI) Body weight Systolic blood pressure Diastolic blood pressure Provider Name and Address Organization Details Last Updated DateTime 12/10/2019 170.18 cm 30.1 kg/m2 27426.74 g 107 mm[Hg] 72 mm[Hg] Smiley Montelongo [facility] 0 14:26:52 Date Recorded Body height Body mass index (BMI) Body weight Systolic blood pressure Diastolic blood pressure Provider Name and Address Organization Details Last Updated DateTime 12/19/2019 170.18 cm 29.6 kg/m2 15359.96 g 110 mm[Hg] 67 mm[Hg] Annie Dyer [facility] 0 12:01:08 Social History Question Answer Notes LastModified by [employer] Details LastModified Time Tobacco Smoking Status Never Smoker Smiley Montelongo pernell, [facility] 12/10/2019 14:28:29 What Is Your Level Of Alcohol Consumption? None Information not available 12/19/2019 Sex: Unknown Functional Status Question Answer Note LastModified by Organizat ion Details LastModified Time What is your exercise level? Occasional Information not available 12/19/2019 Mental Status None recorded. Family History Relationship Description Onset Age of this Age Resolved Age Notes LastModified by Organization Details LastModified Time Father Myocardial infarction [email or web address] Not available 12/09 14:27:54 Father Carcinoma in situ of kidney [email or web address] Not available 2019 14:28:26 Paternal Grandmother Blood coagulation disorder [email or web address] Not available 2019 14:28:00 Maternal Grandmother Diabetes mellitus [email or web address] Not available 2019 14:28:07 Notes:Father: Cancer, kidney , Heart Attack Maternal grandmother: Diabetes mellitus Paternal grandmother: Clotting disorder Medical History Condition Response Allergies (Food, seasonal, environmental ) N Other Y Breast Cancer N Drug/Latex Allergies/Reactions N Blood Transfusion N Dermatologic Disorders N Lung Disease N Defects or Inherited Disease N Breast Problem N Gestational Diabetes N Hematologic disorders N Anesthesia Complications N History of STI Y Deep Vein Thrombosis N Polycystic ovary syndrome N Anxiety Disorder Y Autoimmune disease N Arthritis N Infertility N Polyps N Acid Reflux (GERD) N History of abnormal pap N Cancer N Stroke N Varicosities N Neurologic/Epilepsy N Endometriosis N High Cholesterol N Headaches N Fibromyalgia N Kidney Disease N Heart Problems N Kidney or Bladder Problems N Thyroid Problems N GI Problems N Eating Disorder N Anemia N Art (IVF or FET) N Psychiatric Illness N Ovarian Cancer N Diabetes N Pulmonary (TB, Asthma) N Hepatitis/Liver Disease N Eczema N Urinary Tract Infection N Abuse/Domestic Violence N Asthma N Trauma/Violence N Depression/ depression N Heart Disease N Pre-Eclampsia N Hypertension N Osteoporosis N Thrombophilias N Gynecological History Statement/Question Response Abnormal Pap N Flow Moderate Date of LMP 06/08/2022 Sexually Active? Y STIs/STDs Y HPV Vaccine N Date of Last Pap Smear 01/02/2019 Sexual Problems? N Current Control Method None Desired Control Method Patch Obstetrics History GPAL:G 2 P 0 0 0 0 Past Encounters Encounter ID Performer Location Encounter Start Date Encounter Closed Date Diagnosis/Indication Diagnosis SNOMED-CT Code Diagnosis ICD10 Code Diagnosis Note [id number] Marianela Chowdhury [facility] [address],[facility] [address] 12/10/2019 14:20:48 12/10/2019 15:02:54 Malaise and fatigue 262637449 R53.83 R63.5 F41.8 Gained 30# within 30d. Tired all the time. Anxiety. Complete lab work up & will discuss results in 1wks at f/u. Menorrhagia 730659873 N9 2.0 Agrees to pelvic exam with next visit along with WWE & consider TVUS moving forward if labs are wnl. [id number] Marianela Chowdhury , [facility] [address],[facility] [place] [address] 12/19/2019 11:53:04 12/19/2019 12:34:03 Serum iron above reference range 556531161 R79.0 Referred to Hematology . Has appt 01/06/2020 Menorrhagia 915529582 N9 2.0 We discussed restarting OCP which she is open too. However, will wait until she sees hematologi st to ensure this is a safe choice for her. Will call with update & if hematologi st gives thumbs up on starting OCP/POP will send Rx and have her f/u x 3mos. We talked about OCP/POP/IU D/Nuvaring . Discussed all control options in great detail. Pt would like to start ocp. She is aware of the risks and benefits. She does not have any medical condition that is contraindi cated with the use of estrogen containing control. Pt will start her pills on the first monday following the start of her period. She is aware it is not effective for control the first month. She is also aware of the importance of taking at the same time every day. Encouraged use of condoms as the pill does not protect against STD's. Will return in 3 months for med check. Consent was read and signed. Pt verbalized understand ing. [id number] Marianela Chowdhury , [facility] [address] [address] 06/23/2022 09:36:15 06/23/2022 10:23:45 Gynecologic examination 19968407 Z01.419 Take Calcium with Vitamin D 1200mg daily if not receiving in daily diet. It is strongly advised to have an annual flu shot and up can obtain at most pharmacies . If you have not had a TDap shot in the last 10 years you should obtain one as well. Discussed with patient & provided with informatio n regarding Gardisil vaccine to prevent the 4 strains for HPV that cause cervical cancer if under age 26. Encourage safe sexual practices, to use condoms and limit partners if not already in a monogamous relationsh ip. Do monthly self breast exams. Have mammogram yearly or every other year depending on family history. BRCA testing is now available for patients with strong genetic history of female cancer. If interested contact the office. Engage in daily exercise of low impact aerobic exercise 45-60 minutes 4-5 times weekly. Avoid tobacco and illicit drugs as well as using moderation with alcohol intake less than 1-2 8 oz beverages daily. This lifestyle behavior pattern will lead to less health conditions and longer life span. If BMI greater than 25 weight watchers or dietary consult advised. Patient received above instructio ns, and questions have been answered. If you have any questions please call or respond to this email. Patient was made aware of the patient portal and may obtain a paper copy of today's plan if desired. Pap/hpv STD Screen Genetic Screen Colon Screen Dexa Screen Routine Labs Contracept ion care management 604281832 Z30.9 Discussed all control options in great detail. Pt would like to start xulane patch. She is aware of the risks and benefits. Informed her it may not be as effective for contracept ion since her weight is over 198 lbs. She does not have any medical condition that is contraindi cated with the use of estrogen containing control. Pt will place the patch on the first monday following the start of her period and then replace weekly x 2 (total of 3 patches over 3 weeks) and week 4 no patch. She is aware it is not effective for control the first month and may be less effective d/t her weight. She is also aware that she will need to check placement daily to ensure it has not come off. Encouraged use of condoms as the nuvaring does not protect against STD's. Will return in 3 months for med check. Consent was read and signed. Pt verbalized understand ing. RTO x 3 mos med check Female str ess incontinence 40431523 N39.3 Referrals sent Health Concerns Section Related Observation LastModified by Organization Detai ls LastModified Time None Recorded Concern Status LastModified by Organization Details LastModified Time None Recorded Advance Directives Directive None Recorded Payers Encounter Date Sequence Insurance Name Policy Number Policy Parekh Covered Member ID Parekh Member ID Guarantor Name 12/10/2019 1 [facility] [id number] [employer] Brody [id number] Paulinei-driveage 12/19/2019 1 [facility] [id number] Soham L Brody [id number] Pauline Brody 06/23/2022 1 [facility] [id number] Soham L Brody [id number] Pauline Brody Notes Date Note Type Note Provider Name and Address Organization Details Recorded Time 12/10/2019 text/html Patient presents with multiple complaints. 1. Abn Weight gain/Fatigue/Anxie ty Gained 30# in less than a month despite no change in diet/exercise routine. Always fatigued & tired. Voices no issues falling or staying asleep. Recently put on trial of phenteramine for weight loss. Did not feel it did a lot. Only used it for 2mos. 2. Menorrhagia Hx of heavy menses q3wks lasting 3-4 days sometimes clots. PMS like sx's with sore breasts the week before her cycle starts. Feels like periods are heavier the last couple of months. SYLVIE Stewart-STEFANO [address], [place], [address], [facility] 12/10/2019 14:47:52 12/19/2019 text/html Patient is here to f/u from recent lab work & menorrhagia. JENNIFER Stewart [address], [place], [address], [facility] 12/19/2019 12:30:19 06/23/2022 text/html Annual GYNReport ed bypatient.Menstrua l cycle:Normal menses Urinary symptoms:No hematuria;Stress incontinence Vulva:No genital lesion Vagina:Normal vaginal discharge Breast:No breast pain; No breast lump; No nipple discharge Current Contraception:Aria h control not practiced Sexual complaints:No sexual complaints; No pain during intercourse; Normal libido Menopausal Symptoms:No menopausal symptoms; Normal vaginal lubrication Psychological symptoms:No depression; No anxiety; No PMDD Preventive measures:Encourage self breast examination; Encourage regular exercise; Encourage no tobacco use; Encourage regular mammograms starting age 40; Followed with yearly pap smears Marianela Chowdhury [facility] [address], [place], [address], [facility] 06/23/2022 10:19:45 OBGyn Episode Ob Episode Information Episode Created Date Number of Fetuses Patient Bloodtype Patient rh Status Prepregnancy Weight lbs Domestic Partner Domestic Partner Phone Father Name Lending Manager Status 12/10/19 20 1 CLOSED Fetus Data First Name Last Name Admitted to NICU Weight (g) Sex Living Outcome Pediatric Complications Fetus ID Race Codes Race Delivery Type [id number] Vaginal Delivery Ashkan Calculation Initial Ashkan Date Initial Exam Date Initial Exam Provider Initial Ultrasound Date Last Menstrual Period Date Ultra Sound Weeks Gestation 0 Eighteen To Twenty Week Ashkan Update Ultra Sound Date Fundal Height At Umbil Quickening Date Ultra Sound Latest Weeks Gestation Final Ashkan Confirmed By Final Ashkan Confirmed Date Final Ashkan Date Ultra Sound Latest Days Gestation 0 0 Menstrual History Last Menstrual Date Menses Monthly On Bcp Conception Prior Menses Frequency Hcg Plus Date Menarche Onset Age Delivery Information Delivery Date Delivery Type Labor Anesthesia Weeks Gestation Incision Type Labor Labor Length Hrs Delivered By Post Complications Tubal Sterilization Discharge Date Comments 1 Discharge Information Feeding Method Contraceptive Method Maternal HG B and HCT Levels Ob Episode Information Episode Created Date Number of Fetuses Patient Bloodtype Patient rh Status Prepregnancy Weight lbs Domestic Partner Domestic Partner Phone Father Name Lending Manager Status 12/10/19 20 1 CLOSED Fetus Data First Name Last Name Admitted to NICU Weight (g) Sex Living Outcome Pediatric Complications Fetus ID Race Codes Race Delivery Type 3857 Vaginal Delivery Ashkan Calculation Initial Ashkan Date Initial Exam Date Initial Exam Provider Initial Ultrasound Date Last Menstrual Period Date Ultra Sound Weeks Gestation 0 Eighteen To Twenty Week Ashkan Update Ultra Sound Date Fundal Height At Umbil Quickening Date Ultra Sound Latest Weeks Gestation Final Ashkan Confirmed By Final Ashkan Confirmed Date Final Ashkan Date Ultra Sound Latest Days Gestation 0 0 Menstrual History Last Menstrual Date Menses Monthly On Bcp Conception Prior Menses Frequency Hcg Plus Date Menarche Onset Age Delivery Information Delivery Date Delivery Type Labor Anesthesia Weeks Gestation Incision Type Labor Labor Length Hrs Delivered By Post Complications Tubal Sterilization Discharge Date Comments 4 Discharge Information Feeding Method Contraceptive Method Maternal HG B and HCT Levels
--- OUTSIDE RECORDS SUMMARY | 2024-08-24 11:52 | XMS_ITS | Data Portability ---
Author Organization [place] - [employer], Main Office Address [address] [place] [id number] Assessment Encounter Date Assessment Date Assessment LastModified by Organization Details LastModified Time 03/23/2023 03/23/2023 Resume phentermine she has tolerated well in the past monitor blood pressure she knows that see me in a month [email or web address] Not available 03/24/2023 15:55:04 Plan of Treatment Reminders Order Date Submit Date Provider Last Modified By Organization Details Last Modified Time Details Appointments None record ed. Lab None record ed. Referral None record ed. Procedures None record ed. Surgeries None record ed. Imaging None record ed. Medication Orders None record ed. Patient TargetsNo targets recorded. Patient InstructionsNo instructions recorded. Reason for Referral None Reported. Results Created Date Observation Date Name Description Value Unit Range Abnormal Flag Note LastModifiedBy Organization Detail LastModifiedTime 04/04/20 22 04/04/2022 SARS- COV-2 RNA(C OVID1 9),RT -PCR sars-cov-2 RNA(covid19) ,RT-PCR negati ve This test has been autho rized by the FDA under an Emerg ency Use Autho rizat ion (EUA) for use by autho rized labor atori es. Negat joselin resul ts do not precl ude SARS- CoV-2 and shoul d not be used as the sole basis for treat ment or other patie nt manag ement decis ions. Test resul ts shoul d be corre lated with the clini kassandra histo ry, epide miolo gical data, and other data avail able to the clini omaira evalu ating the patie nt. Dorita hicks w the Fact Sheet s for healt h care provi ders and patie nts at the [facility] kamar: https ://ww w.fda .gov/ media /1363 12/do wnloa d https ://ww w.fda .gov/ media /1363 13/do wnloa d https ://ww w.fda .gov/ media /1421 92/do wnloa d https ://ww w.fda .gov/ media /1421 91/do wnloa d Metho dolog y: Real- Time RT-PC R Not Available [facility] (Lab) [address] [place], [address], 04/04/2022 16:06:22 04/04/20 22 04/04/2022 RAPID STREP A DNA strep A antigen negati ve negati ve Not Available [facility] (Lab) [address] [place], [address], 04/04/2022 14:28:32 04/04/20 22 04/04/2022 INFLU JONELLE A/B ANTIG EN RAPID flu A negati ve negati ve Not Available [facility] (Lab) [address] [place], [address], 04/04/2022 14:25:18 04/04/20 22 04/04/2022 INFLU JONELLE A/B ANTIG EN RAPID flu B negati ve negati ve THIS TEST CAN NOT DISTI NGUIS H INFLU JONELLE A VIRUS SUBTY PES. ALSO, PLEAS E NOTE THAT A NEGAT JOSELIN RESUL T DOES NOT EXCLU DE INFLU JONELLE VIRUS INFEC TION. IF MORE CONCL USIVE TESTI NG IS MAXIMO ED, FOLLO W-UP CONFI RMATO RY TESTI NG WITH RT-PC R IS SUGGE STED. Not Available [facility] (Lab) [address] [place], [address], 04/04/2022 14:25:18 04/04/20 22 04/04/2022 INFLU JONELLE A/B ANTIG EN RAPID valid QC positi ve Not Available [facility] (Lab) [address] [place], [address], 04/04/2022 14:25:18 04/04/20 22 04/04/2022 INFLU JONELLE A/B ANTIG EN RAPID lot # [id number] Not Available [facility] (Lab) [address] [place], [address], 04/04/2022 14:25:18 04/04/20 22 04/04/2022 INFLU JONELLE A/B ANTIG EN RAPID [employer] swab Not Available [facility] (Lab) [address] [place], [address], 04/04/2022 14:25:18 Result Notes None recorded. Problems Name Problem SNOMED Code Status Onset Date Resolution Date Notes Provider Name and Address Organization Details Recorded Time Renewal of prescripti on Active 2021 Not Available [facility] 3 16:40:29 Nausea and vomiting 53983269 Active Not Available [facility] 3 16:40:29 Contact dermatitis caused by urushiol from [place] poison jon 951312498 Active 2021 Not Available [facility] 3 16:40:29 Abdominal pain 18076310 Active Not Available [facility] 3 16:40:29 Headache 34820489 Active 2019 Not Available [facility] 3 16:40:29 Toothache 87742202 Active 2021 Not Available [facility] 3 16:40:29 Sinusitis 64649092 Active Not Available [facility] 3 16:40:29 Dizziness 467542391 Active Not Available [facility] 3 16:40:29 Nausea 386242265 Active Not Available [facility] 3 16:40:29 Anxiety 00044998 Active 2019 Not Available [facility] 3 16:40:30 Dysuria 25649745 Active Not Available [facility] 3 16:40:30 Colitis 87696379 Active Not Available [facility] 3 16:40:30 Urinary tract infectious disease 20746577 Active Not Available [facility] 3 16:40:30 Fatigue 99350084 Active Not Available [facility] 3 16:40:30 Pain in right foot 6063501230455 07 Active 2022 Pauline Shields RN [facility], [facility] [employer] [facility] 3 10:39:11 Weight gain 3532287 Active 2022 Gregg Martinez MD [address] [place] [address] [address], [place], [address] , [facility] [employer] [facility] 3 15:56:44 Notes:Some problems listed i n Document: #[id number] could not be added to this patient's chart. Please review this document and add these problems to the patient's chart manually as needed. Problem Notes None recorded. Procedures Surgical History Date Name Laterality Status Provider Name and Address Organization Details Recorded Time 03/09/20 15 Cholecystectomy completed Not Available [facility] 04/2022 16:39:52 Imaging Results None recorded. Procedure Notes None recorded. Medical Equipment None Reported. Allergies No known drug allergies Medications Name Sig Start Date Stop Date Status Note LastModified by Organization Details LastModified Time amoxicill in 500 mg capsule TAKE 4 CAPSULES BY MOUTH STAT THEN 1 CAP THREE TIMES DAILY active Not Available Not Available No t Available fluconazo le 100 mg tablet 01/16 completed Not Available Not Available Not Available bupropion HCl SR 150 mg tablet,12 hr sustained -release TAKE 1 TABLET BY MOUTH TWICE A DAYNEE DS APPT 10/15 completed Not Available Not Available Not Available nystatin 100,000 unit/mL oral suspensio n 01/16 completed Not Available Not Available Not Available venlafaxi ne ER 37.5 mg capsule,e xtended release 24 hr 12/17 completed Not Available Not Available Not Available venlafaxi ne ER 75 mg capsule,e xtended release 24 hr TAKE 1 CAPSULE BY MOUTH EVERY DAY IN THE MORNING. MUST USE MAIL ORDER active Not Available Not Available No t Available clindamyc in HCl 300 mg capsule Take 1 capsule 3 times a day by oral route for 7 days. active Not Available Not Available No t Available trazodone 50 mg tablet active Not Available Not Available Not Available ibuprofen 800 mg tablet 09/29 completed Not Available Not Available Not Available fluconazo le 150 mg tablet TAKE 1 TABLET BY MOUTH EVERY DAY 12/20 completed Not Available Not Available Not Available hydrocodo ne 5 mg-acetam inophen 325 mg tablet TAKE 1 TABLET BY MOUTH EVERY 6 HOURS NEEDED 05/08 completed Not Available Not Available Not Available ondansetr on HCl 8 mg tablet Take 1 tablet every 8 hours by oral route for 2 days. 11/23 completed Not Available Not Available Not Available metronida zole 0.75 % (37.5 mg/5 gram) vaginal gel 01/23 completed Not Available Not Available Not Available ondansetr on HCl 4 mg tablet TAKE 1 TABLET BY MOUTH EVERY 6 HOURS NEEDED 05/08 completed Not Available Not Available Not Available Zithromax Z-Candelario 250 mg tablet Take 2 TABLEts the first day then 1/day 12/16 completed Not Available Not Available Not Available venlafaxi ne ER 150 mg capsule,e xtended release 24 hr TAKE 1 CAPSULE BY MOUTH EVERY DAY IN THE MORNING FOR 90 DAYS active Not Available Not Available No t Available phentermi ne 37.5 mg tablet TAKE 1 TABLET BY MOUTH EVERY DAY 2 HOURS AFTER BREAKFAS T 2022 active last refill: 12/20 Not Available Not Available Not Available acetamino phen 300 mg-codein e 30 mg tablet TAKE 1 TABLET BY MOUTH EVERY 6 HOURS NEEDED FOR PAIN 05/08 completed Not Available Not Available Not Available ciproflox acin 500 mg tablet Take 1 tablet every 12 hours by oral route. 07/27 completed Not Available Not Available Not Available tramadol 50 mg tablet TAKE 1 TABLET BY MOUTH EVERY 6 HOURS NEEDED 05/08 completed Not Available Not Available Not Available amoxicill in 875 mg tablet Take 1 tablet every 12 hours by oral route. active Not Available Not Available No t Available alprazola m 0.25 mg tablet 06/11 completed Not Available Not Available Not Available amitripty line 25 mg tablet TAKE 1 TABLET AT BEDTIME 11/23 completed Not Available Not Available Not Available trazodone 100 mg tablet TAKE 1/2 TABLET BY MOUTH AT BEDTIME 08/04 completed duplicat e Not Available Not Available Not Available hydrocodo ne 7.5 mg-acetam inophen 325 mg tablet TAKE 1 TABLET BY MOUTH EVERY 6 HOURS NEEDED FOR PAIN 09/29 completed Not Available Not Available Not Available pantopraz ole 40 mg tablet,de layed release 01/23 completed Not Available Not Available Not Available erythromy kenia 5 mg/gram (0.5 %) eye ointment LOCATION : LEFT EYE. APPLY SMALL AMOUNT TO EYE AND EYE LID 3 TIMES A DAY FOR 1 WEEK 03/23 completed Not Available Not Available Not Available venlafaxi ne 37.5 mg tablet TAKE 1 TABLET BY MOUTH TWICE A DAY 08/17 completed Not Available Not Available Not Available fluoxetin e 20 mg tablet Take 1 tablet every day by oral route. 06/09 completed pt states she never started taking this medicati on. Not Available Not Available Not Available dexametha sone 4 mg tablet TAKE ONE TABLET BY MOUTH DAILY UNTIL FINISHED active Not Available Not Available No t Available venlafaxi ne 50 mg tablet TAKE 1 TABLET BY MOUTH TWICE DAILY 07/27 completed Not Available Not Available Not Available omeprazol e 20 mg capsule,d elayed release TAKE ONE CAPSULE BY MOUTH ONCE DAILY 07/27 completed Not Available Not Available Not Available lorazepam 1 mg tablet TAKE ONE TABLET BY MOUTH TWO TIMES A DAY NEEDED FOR ABDOMINA L SPASMS 08/17 completed Not Available Not Available Not Available methylpre dnisolone 4 mg tablets in a dose pack PLEASE SEE ATTACHED FOR DETAILED DIRECTIO NS 03/23 completed Not Available Not Available Not Available Cipro 250 mg tablet Take 1 tablet twice a day by oral route for 7 days. 01/06 completed Not Available Not Available Not Available fluoxetin e 20 mg capsule TAKE 1 CAPSULE BY MOUTH EVERY DAY active Not Available Not Available No t Available fluticaso ne propionat e 50 mcg/actua tion nasal spray,humaira pension INHALE 2 SPRAYS IN EACH NOSTRIL EVERY DAY 02/06 completed Not Available Not Available Not Available sertralin e 50 mg tablet TAKE 1 TABLET BY MOUTH EVERY DAY active Not Available Not Available No t Available dicyclomi ne 10 mg capsule TAKE 1 CAPSULE BY MOUTH UP TO FOUR TIMES DAILY 07/12 completed Not Available Not Available Not Available amoxicill in 875 mg-potass ium clavulana te 125 mg tablet TAKE 1 TABLET BY MOUTH EVERY 12 HOURS 05/08 completed Not Available Not Available Not Available topiramat e 50 mg tablet TAKE 1 TABLET BY MOUTH TWICE A DAY 02/06 completed Not Available Not Available Not Available aripipraz ole 2 mg tablet TAKE 1 TABLET BY MOUTH EVERYDAY AT BEDTIME 12/20 completed Not Available Not Available Not Available quetiapin e 50 mg tablet TAKE 1 TABLET BY MOUTH EVERYDAY AT BEDTIME active Not Available Not Available No t Available omeprazol e 20 mg tablet,de layed release Take 1 tablet every day by oral route. 07/27 completed Not Available Not Available Not Available Suprep Bowel Prep Kit 17.5 gram-3.13 gram-1.6 gram oral solution 02/10 completed Not Available Not Available Not Available Zenpep 40,000 unit-136, 000 unit-218, 000 unit capsule,d elayed release TAKE 1 CAPSULE BY MOUTH 5 TIMES A DAY WITH MEALS AND SNACKS 07/27 completed Not Available Not Available Not Available bupropion HCl 150 mg tablet,12 hr sustained -release( smoking deterrent ) 10/29 completed Not Available Not Available Not Available Trulance 3 mg tablet TAKE 1 TABLET BY MOUTH EVERY DAY 05/08 completed Not Available Not Available Not Available ID NOW COVID-19 Test Kit DIRECTED 12/17 completed Not Available Not Available Not Available Vitals Date Recorded Body mass index (BMI) Body height Heart rate Body temperature Body weight Systolic blood pressure Diastolic blood pressure Provider Name and Address Organization Details Last Updated DateTime 2 31.3 kg/m2 167.64 cm 78 /min 97.9 [degF] 58720.9 2 g 122 mm[Hg] 64 mm[Hg] Not Available [facility] 3 16:40:12 Date Recorded Body mass index (BMI) Body height Heart rate Body temperature Body weight Systolic blood pressure Diastolic blood pressure Provider Name and Address Organization Details Last Updated DateTime 2 31.3 kg/m2 167.64 cm 90 /min 97 [degF] 94822.9 2 g 120 mm[Hg] 60 mm[Hg] Not Available [facility] 3 16:40:12 Date Recorded Body mass index (BMI) Body height Heart rate Body temperature Body weight Systolic blood pressure Diastolic blood pressure Provider Name and Address Organization Details Last Updated DateTime 2 30.2 kg/m2 167.64 cm 80 /min 97 [degF] 41189.7 7 g 110 mm[Hg] 70 mm[Hg] Not Available [facility] 3 16:40:12 Date Recorded Body height Heart rate Body temperature Body weight Systolic blood pressure Diastolic blood pressure Provider Name and Address Organization Details Last Updated DateTime 2 167.64 cm 76 /min 97.4 [degF] 97756.5 1 g 112 mm[Hg] 74 mm[Hg] Not Available [facility] 3 16:40:12 Date Recorded Body weight Body mass index (BMI) Body height Body temperature Heart rate Systolic blood pressure Diastolic blood pressure Provider Name and Address Organization Details Last Updated DateTime 3 45929.4 7 g 32.3 kg/m2 167.64 cm 97.9 [degF] 103 /min 118 mm[Hg] 86 mm[Hg] EST[facility] 3 16:16:42 Social History Question Answer Notes LastModified by Organization Details LastModified Time Tobacco Smoking Status Never Smoker Cherise Connolly CMA([facility]) [facility] 07/20/2022 18:21:43 Do You Have An Advance Directive? No [id number] Information not available 06/22/2022 What Is Your Level Of Alcohol Consumption? None [id number] Information not available 06/22/2022 Do You Wear A Helmet When Biking? No [email or web address] Information not available 07/20/2022 What Is Your Level Of Caffeine Consumption? Occasional [id number] Information not available 06/22/2022 How Much Tobacco Do You Chew? None [id number] Information not available 06/22/2022 In The 14 Days Before Symptom Onset, Have You Had Close Contact With A Laboratory-confi rmed COVID-19 While That Case Was Ill? No [email or web address] Information not available 07/20/2022 In The 14 Days Before Symptom Onset, Have You Had Close Contact With A Person Who Is Under Investigation For COVID-19 While That Person Was Ill? No [email or web address] Information not available 07/20/2022 What Type Of Diet Are You Following? REGULAR [id number] Information not available 06/22/2022 Which Illicit Or Recreational Drugs Have You Used? None [email or web address] Information not available 07/20/2022 Do You Or Have You Ever Used E-cigarettes Or Vape? Never Used Electronic Cigarettes [email or web address] Information not available 07/20/2022 What Is The Highest Grade Or Level Of School You Have Completed Or The Highest Degree You Have Received? [id number] [email or web address] Information not available 07/20/2022 What Is Your Occupation? [employer], [employer] Other [email or web address] Information not available 07/20/2022 Have There Been Any Changes To Your Family Or Social Situation? No [email or web address] Information not available 07/20/2022 Are There Any Guns Present In Your Home? No [email or web address] Information not available 07/20/2022 Do You Use Insect Repellent Routinely? No [email or web address] Information not available 07/20/2022 Where Do You Live? SingleLevelHouse Information not available 07/20/2022 Do You Have A Medical Power Of Limb Driver? No [email or web address] Information not available 07/20/2022 What Was The Date Of Your Most Recent Tobacco Screening? 03/23/2023 [email or web address] Information not available 03/23/2023 Do You Have Any Pets? Yes [email or web address] Information not available 07/20/2022 What Is Your Relationship Status? [id number] Information not available 06/22/2022 Do You Use Your Seat Belt Or Car Seat Routinely? Yes [email or web address] Information not available 07/20/2022 Do You Have Smoke And Carbon Monoxide Detectors In Your Home? Yes [email or web address] Information not available 07/20/2022 Are You Passively Exposed To Smoke? Yes [email or web address] Information not available 07/20/2022 Do You Or Have You Ever Used Smokeless Tobacco? Never Used Smokeless Tobacco [id number] Information not available 06/22/2022 Are There Any Smokers In Your House? Yes Smokes Outside [email or web address] Information not available 07/20/2022 How Much Tobacco Do You Smoke? No [id number] Information not available 06/22/2022 What Types Of Sporting Activities Do You Participate In? None [email or web address] Information not available 07/20/2022 Do You Feel Stressed (tense, Restless, Nervous, Or Anxious, Or Unable To Sleep At Night)? [id number] [email or web address] Information not available 07/20/2022 Do You Use Any Illicit Or Recreational Drugs? No Information not available 07/20/2022 Do You Use Sunscreen Routinely? No [email or web address] Information not available 07/20/2022 Has Tobacco Cessation Counseling Been Provided? No Not Needed Never Smoked [email or web address] Information not available 07/20/2022 How Many Years Have You Smoked Tobacco? 0 Information not available 07/20/2022 Have You Recently Traveled Abroad? No [email or web address] Information not available 07/20/2022 Do You Have Any Dietary Restrictions? No [email or web address] Information not available 07/20/2022 Do You Or Have You Ever Used Any Other Forms Of Tobacco Or Nicotine? No [email or web address] Information not available 07/20/2022 Sex: Female Functional Status Question Answer Note LastModified by [facility] Details LastModified Time What is your exercise level? Moderate [id number] Information not available 06/22/2022 Mental Status None recorded. Family History Relationship Description Onset Age of this Age Resolved Age Notes LastModified by Organization Details LastModified Time Mother General health good [email or web address] Not available 0 07/20/2022 18:21:42 Father Myocardial infarction [id number] Not available 06/22/2022 16:39:52 Father Malignant tumor of kidney 55 with METS [email or web address] Not available 07/20/2022 18:21:42 Paternal Grandmother Peripheral vascular disease [email or web address] Not available 18:21:42 Maternal Grandmother Dementia [email or web address] Not available 07/20/2022 18:21:42 Medical History Condition Response NERVE DISEASE N BLINDNESS N RHEUMATIC FEVER N KIDNEY STONES N BLADDER PROBLEMS N MRSA N OTHER # 1 N POLIO N LUNG DISEASE/DISORDER N RADIATION / CHEMOTHERAPY N COPD N Other # 2 N BLOOD DISEASES N EAR OR HEARING PROBLEMS N MUMPS N BOWEL PROBLEMS Y DEPRESSION (INCLUDING POST ) N STROKE/TIA N ULCERS N BENIGN PROSTATIC HYPERPLASIA N MEASLES N MYOCARDIAL INFARCTION N OBESITY N GERD/NAUSEA N ANEURYSM N URINARY/BLADDER/KIDNEY PROBLEMS N CORONARY ARTERY DISEASE (CAD) N ADDICTION CONCERNS N Impotence N ENDOMETRIOSIS N USE OF BLOOD THINNERS N SKIN PROBLEMS N GASTROINTESTINAL DISORDER N PERIPHERAL VASCULAR DISEASE N MUSCLE,JOINT OR BONE PROBLEMS N GASTROINTESTINAL BLEEDING N BLOOD CLOTS N ASTHMA N CATARACTS N ERECTILE DYSFUNCTION N VARICOSITIES N GI PROBLEMS N Low Testosterone N INFERTILITY N AIDS/HIV N CHEMOTHERAPY / RADIATION N LIVER DISEASE N MALE HYPOGONADISM N HYPERTENSION N Deficiency N TOURETTE'S N ANXIETY DISORDER Y BLOOD TRANSFUSION N ANEMIA/BLOOD DISORDER N CHRONIC EAR INFECTIONS N BRONCHITIS N TUBERCULOSIS N GLAUCOMA N FOOT PROBLEM N DIVERTICULITIS N SLEEP APNEA N CHICKENPOX N INFECTIOUS DISEASE N PROSTATE N HEART ARRHYTHMIA N INSOMNIA N HIGH CHOLESTEROL / HYPERLIPIDEMIA N EYE PROBLEMS N HYPERTHYROIDISM N EDEMA N CHRONIC PAIN SYNDROME N HYPOTHYROIDISM N CONSTIPATION N CAROTID BLOCKAGE N BACK / NECK PROBLEMS N HAVE YOU BEEN HOSPITALIZED OR SEEN IN PSYCHIATRIC IN THE PAST YEAR ? N ATHEROSCLEROSIS N BREAST PROBLEMS N DIALYSIS N ECZEMA N OSTEOPOROSIS N ARTHRITIS N APPENDICITIS N DIABETES, TYPE N BAD TEETH N ENT N HEARTBURN / REFLUX N AUTISM SPECTRUM DISORDER (ASD) N HEPATITIS / LIVER DISEASE N GOUT N SLEEP DISORDER N ALZHEIMER'S DISEASE N Brain Problems N DEMENTIA N HERPES N SEIZURES/EPILEPSY N HEADACHES/MIGRAINES Y VASCULAR DISEASE N PACEMAKER N Blood Disorder N DIZZINESS Y HEART DISEASE/HEART PROBLEMS N KIDNEY DISEASE N MULTIPLE SCLEROSIS N CANCER: SPECIFY N CARDIAC ARRHYTHMIA N ATRIAL FIBRILLATION N Gall Stones N PULMONARY EMBOLISM N AUTOIMMUNE DISEASE N Gynecological HistoryNo gynecological history recorded. Obstetrics History GPAL:G 0 P 0 0 0 0 Past Encounters Encounter ID Performer Location Encounter Start Date Encounter Closed Date Diagnosis/Indication Diagnosis SNOMED-CT Code Diagnosis ICD10 Code Diagnosis Note [id number] Gregg Martinez MD [facility] Internal Med [facility] [address] [address] 08/25/2020 00:00:00 08/25/2020 22:29:[id number] [facility] [place] [facility] [address] [address] 10/15/2020 00:00:00 10/16/2020 16:54:15 [id number] [facility] [address] [address] 12/17/2020 00:00:00 01/10/2021 18:54:18 [id number] Gregg Martinez MD [facility] Internal Med [facility] 15 [address] [facility] [address] [place] [address] 01/27/2021 00:00:00 02/14/2021 18:11:25 [id number] Gregg Martinez MD [facility] Internal Med [facility] 15 [address] [facility] [address] [place] [address] 02/24/2021 00:00:00 02/26/2021 22:33:59 [id number] Gregg Martinez MD [facility] Internal Med [facility] 15 [address] [facility] [address] [place] [address] 04/15/2021 00:00:00 04/15/2021 22:26:43 [id number] Gregg Martinez MD [facility] Internal Med [facility] 15 [address] [facility] [address] [place] [address] 06/23/2021 00:00:00 06/23/2021 15:58:42 [id number] Gregg Martinez MD [facility] Internal Med [facility] 15 [address] [facility] [address] [place] [address] 08/04/2021 00:00:00 09/04/2021 21:41:32 [id number] Gregg Martinez MD [facility] Internal Med [facility] 15 [address]43 [facility], [facility] [address] [place] [address] 08/27/2021 00:00:00 08/27/2021 21:34:59 [id number] Gregg Martinez MD [facility] Internal Med [facility] 15 [address] [facility] [address] [place] [address] 09/29/2021 00:00:00 10/10/2021 18:12:05 [id number] Gregg Martinez MD [facility] Internal Med [facility] 15 [address] [facility] [address] [place] [address] 12/20/2021 00:00:00 12/21/2021 08:56:16 [id number] Arnaldo Mott MD [facility] [address] [place] [address], [address] [address] 09/10/2020 00:00:00 09/13/2020 23:21:11 [id number] Arnaldo Mott MD [facility] [address] [address] 11/04/2020 00:00:00 11/04/2020 16:29:11 [id number] Arnaldo Mott MD [facility] [address] [address] 12/02/2020 00:00:00 12/02/2020 16:21:01 [id number] Arnaldo Mott MD [facility] [address] [address] 12/31/2020 00:00:00 12/31/2020 14:57:22 [id number] Arnaldo Mott MD [facility] [address] [address] 02/17/2021 00:00:00 02/17/2021 15:43:46 [id number] Kathryn Hutson NP [facility] [address] [address] 04/15/2021 00:00:00 04/15/2021 14:58:16 [id number] Kathryn Hutson NP [facility] [address] [address] 05/17/2021 00:00:00 05/17/2021 17:56:31 [id number] Kathryn Hutson NP [facility] [address] [address] 07/13/2021 00:00:00 07/15/2021 15:16:18 [id number] [facility] [address] [address] 04/04/2022 00:00:00 04/05/2022 10:39:41 [id number] Kathryn Hutson, DONNY [facility] [address] [address] 05/17/2022 00:00:00 05/18/2022 16:58:46 [id number] Kathryn Hutson NP [facility] [address], [address] [address] 06/21/2022 00:00:00 06/21/2022 18:50:06 [id number] Kathryn Hutson NP [facility] [address] [place] [address] [address] 07/20/2022 18:18:18 07/21/2022 14:35:29 [id number] Kathryn Hutson NP [facility] [address], [address] [address] 10/06/2022 18:09:43 10/07/2022 11:10:19 [id number] Kathryn Hutson NP S_[facility] [address] [place] [address], [address] [address] 11/03/2022 18:38:08 11/10/2022 17:58:30 [id number] Kathryn Hutson NP [facility] [address] [address] 12/01/2022 18:24:14 12/05/2022 11:37:07 [id number] Kathryn Hutosn NP [facility] [address] [address] 02/23/2023 18:19:24 02/24/2023 14:35:02 [id number] Kathryn Hutson NP S[facility] [address] [address] 03/23/2023 18:03:42 03/24/2023 09:37:22 [id number] [address] [facility] Internal Med Keturah dewitt [address] [facility] y , [place] [address] 03/23/2023 15:49:52 03/23/2023 17:45:35 Weight gain [id number] R63.5 [id number] Kathryn Hutson NP [facility] [address], [facility] [address] [place] [address] 08/02/2023 12:37:07 08/02/2023 14:26:41 [id number] Kathryn Hutson NP [facility] [address] [facility] [address] [place] [address] 08/17/2023 11:13:11 08/17/2023 12:58:38 Health Concerns Section Related Observation LastModified by Organization Detai ls LastModified Time None Recorded Concern Status LastModified by Organization Details LastModified Time None Recorded Advance Directives Directive N: Payers Encounter Date Sequence Insurance Name Policy Number Policy Parekh Covered Member ID Parekh Member ID Guarantor Name 03/23/2023 1 [facility] [id number] Pauline Brody [id number] Pauline Brody Notes Date Note Type Note Provider Name and Address Organization Details Recorded Time 03/23/2023 text/html Would like to go back on the phentermine Gregg Martinez MD [address], [facility] [address], [place], [address], [facility] [employer] 03/24/2023 15:57:50 OBGyn Episode No OBEpisode recorded.
== END 2024-08-23 10:35 | disposition home or self-care (01) ==
PROVIDERS: PCP Internal Medicine; Visit Provider Internal Medicine Hematology & Oncology
DX: E83.110 Hereditary hemochromatosis (principal)
CPT/HCPCS: 36415; 82728; 83540; 83550; 85025

== ENCOUNTER 2024-11-14 16:20 | Outpatient (CLI) | payer OTHER, SELFPAY ==
--- NOTE | ~2024-11-14 | XR_ITS ---
XR_[id number]_[id number] INDICATION: Neck pain from a TECHNIQUE: 3 views of the cervical spine. FINDINGS: 11/23/2016 The cervical spine is visualized to the cervicothoracic junction. There is no prevertebral soft tiss ue swelling, listhesis, or loss of vertebral body height. Intervertebral disc spaces are normal. Th e osseous central canal is patent. Moderate multilevel right-sided facet hypertrophy. No displaced ce rvical spine fractures are identified. IMPRESSION: 1. Moderate cervical spondylosis primarily affecting the right facet joints. Reviewed, dictated and finalized at location A.
--- OUTSIDE RECORDS SUMMARY | 2024-11-14 16:23 | XMS_ITS | Clinical Summary ---
Author Organization [facility] Address [address] [place] [address] Phone Care Team Providers Care Webbing Weaver Name Role Phone Gregg Martinez MD Primary Care Provider [phone] Social History Tobacco Use Types Packs/Day Years Used Date Smoking Tobacco: Never Assessed Comments Unknown Sex and Gender Information Value Date Recorded Sex Assigned at Not on file Legal Sex Female 11:36 PM CDT Gender Identity Not on file Sexual Orientation Not on file Plan of Treatment Health Maintenance Due Date Last Done Comments Hepatitis C Virus (HCV) Screening 1986 TdaP Immunization 1986 Human Papillomavirus (HPV) Immunization (1 - 3-dose series) 2001 Hepatitis B Immunization (1 of 3 - 19+ 3-dose series) 2005 Pap Smear 11/30/2007 Cervical Cancer Screening (CCS) 2016 HPV/Cotest 2016 SARS-COV-2 Immunization (2023- season) 2023 Influenza Immunization (#1) 2024 Respiratory Syncytial Virus (RSV) Immunization (Adult) (1 - 1-dose 75+ series) 2061 Meningococcal Immunization (ACWY) Aged Out No longer eligible based on patient's age to complete this topic Pneumococcal Immunization Combined Aged Out No longer eligible based on patient's age to complete this topic Rotavirus Immunization Aged Out No lo nger eligible based on patient's age to complete this topic Insurance [facility] Care Teams Webbing Weaver Relationship Specialty Start Date End Date Gregg Martinez MD [address] [place] [id number] PCP - General Internal Medicine 09/20/23
== END 2024-11-14 16:21 | disposition home or self-care (01) ==
PROVIDERS: PCP Internal Medicine; Visit Provider Internal Medicine
DX: M47.892 Other spondylosis, cervical region (principal)
CPT/HCPCS: 72040

== ENCOUNTER 2025-02-19 17:09 | Emergency (ER) | payer OTHER, SELFPAY ==
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
[2025-02-19 17:19] VITALS: BP 116/70; PULSE 67; RESP 16; TEMP 36.5; O2SAT 98
--- OUTSIDE RECORDS SUMMARY | 2025-02-19 18:04 | XMS_ITS | Data Portability ---
Author Organization TIMO MANNAmy Chandra Address [address] [place] [address] Care Team Providers Care Membership Correspondent Name Role Phone MARTINEZANNA MARIE Primary Care Provider [phone] [facility] Want Ad Supervisor Assessment Encounter Date Assessment Date Assessment LastModified by Organization Details LastModified Time 10/12/2023 10/12/2023 Phentermine follow up 1 month regular walking and healthy lifestyle choices Not available 11/21/2023 21:08:24 11/06/2023 11/06/2023 obesity handout continue phentermine follow up in 1 month [email or web address] Not available 11/06/2023 22:13:47 12/11/2023 12/11/2023 continue current therapy follow up in 4-6 weeks [email or web address] Not available 12/16/2023 13:51:28 01/11/2024 01/11/2024 continue with phentermine continue with walking side effects again reviewed she has none see me back 1 month [email or web address] Not available 01/13/2024 13:52:29 11/14/2024 11/14/2024 X-ray of the neck physical therapy Medrol Dosepak opportunity seized for healthy lifestyle care instructions follow up 1 month [email or web address] Not available 11/16/2024 17:56:52 Plan of Treatment Reminders Order Date Submit Date Provider Last Modified By Organization Details Last Modified Time Details Appointments None recorded. Lab None recorded. Referral physical therapist referral 2024 025 [email or web address] 0 [facility] [place], [facility] [address], [place], [address], 15:32:05 Procedures None recorded. Surgeries None recorded. Imaging XR, cervical spine 2024 025 [facility] (Imaging), [address] [place] [address] [address], [place], [address], 08:49:23 Medication Orders Medrol (Candelario) 4 mg tablets in a dose pack 2024 025 [id number], [address] [place], [address], 19:52:55 Patient TargetsNo targets recorded. Patient Instructions Encounter Date Encounter Id Patient Instructions Last Modified By Organization Details Last Modified Time 10/12/2023 [id number] A healthy lifestyle: care instructions [email or web address] Not available 11/21/2023 21:08:37 11/06/2023 [id number] A healthy lifestyle: care instructions Not available 11/06/2023 22:14:01 11/14/2024 [id number] A healthy lifestyle: care instructions [email or web address] Not available 11/14/2024 19:52:55 Reason for Referral Physical Therapist Referral for Neck pain Referring Physician: Anna Marie Martinez, Internal Medicine, Encounter Date: 11/14/2024 Results Created Date Observation Date Name Description Value Unit Range Abnormal Flag Note LastModifiedBy Organization Detail LastModifiedTime 09/25/1909/21/2023 home sleep study No observ ation record ed. [email or web address] [facility] [address] [place], [address], 09/27/2023 12:39:53 11/16/1911/14/2024 XR, cervi kassandra spine No observ ation record ed. [address], [place], [address], 11/21/2024 13:11:15 11/16/19 25 11/14/2024 XR, cervi kassandra spine No observ ation record ed. [place] [address], [place], [address], 11/21/2024 13:11:15 Result Notes None recorded. Problems Name Problem SNOMED Code Status Onset Date Resolution Date Notes Provider Name and Address Organization Details Recorded Time Sleep disorder 05493105 Active 2023 Anna Marie Martinez MD Attn: Ricky rivas,[address] [facility], [place], [address], [facility] 4 19:12:33 Hereditary hemochromatosi s 14977188 Active 2023 Anna Marie Martinez MD Attn: Accountclemencia g,[address] [facility], [place], [address], [facility] 4 19:12:34 Anxiety 08534378 Active 2023 Anna Marie Martinez MD Attn: Accountclemencia g,[address] [facility], [place], [address], [facility] 4 19:12:36 Obesity 067173872 Active 2023 Gurinder Olsen MA null, [place] - [facility] 4 14:48:49 Problem Notes None recorded. Procedures Surgical History Date Name Laterality Status Provider Name and Address Organization Details Recorded Time cholecystectomy completed Ritesh Clay MA [place] 08/10/2023 14:48:56 Imaging Results None recorded. Procedure Notes None [...] completed Not Available Not Available Not Available doxycycline hyclate 100 mg capsule TAKE ONE CAP TWICE DAILY WITH A FULL MEAL AND PLENTY OF FLUIDS FOR 14 DAYS AVOID EXCESS SUN EXPOSURE active Not Available Not Available No t Available trazodone 50 mg tablet TAKE 1 TABLET BY MOUTH EVERY DAY AT BEDTIME NEEDED FOR 30 DAYS 08/09 completed Not Available Not Available Not Available tizanidine 4 mg tablet TAKE 1 TABLET BY MOUTH EVERYDAY AT BEDTIME active Not Available Not Available No t Available fluconazole 150 mg tablet TAKE 1 TABLET BY MOUTH ONCE active Not Available Not Available No t Available hydrocodone 5 mg-acetamin ophen 325 mg tablet 08/09 completed Not Available Not Available Not Available doxycycline hyclate 50 mg capsule TAKE ONE CAPSULE TWICE DAILY UNTIL SKIN IS CLEAR. START AFTER FINISHING 100MG CAPSULES active Not Available Not Available No t Available sulfacetami de sodium-sulf ur 10 %-5 % (w/w) topical cleanser WASH FACE TWICE DAILY (1 BOTTLE TO LAST 1 MONTH) active Not Available Not Available No t Available venlafaxine ER 150 mg capsule,ext ended [...] completed Not Available Not Available Not Available ketorolac 10 mg tablet TAKE 1 TABLET BY MOUTH FOUR TIMES A DAY OR NEEDED active Not Available Not Available No t Available dexamethaso ne 4 mg tablet 08/09 completed Not Available Not Available Not Available lidocaine HCl 2 % mucosal solution SWISH AND SWALLOW 10 ML BY MOUTH EVERY 4 HOURS, NEEDED FOR SORE GUMS active Not Available Not Available No t Available methylpredn isolone 4 mg tablets in a dose pack TAKE 1 DOSE PACK BY MOUTH DIRECTED active Not Available Not Available No t Available amoxicillin 875 mg-potassiu m clavulanate 125 mg tablet 08/09 completed Not Available Not Available Not Available amoxicillin 500 mg-potassiu m clavulanate 125 mg tablet TAKE 1 TAB(S) ORALLY EVERY 8 HOURS FOR 10 DAYS 07/24 /2025 completed Not Available Not Available Not Available azelaic acid 15 % topical gel APPLY TO FACE TWICE DAILY (0.8 G PER APPLICATI ON / TUBE TO LAST 1 MONTH) active Not Available Not Available No t Available topiramate 50 mg tablet 08/09 completed [...] in Arterial blood by Pulse oximetry Systolic And Diastolic Provider Name and Address Organization Details Last Updated DateTime 4 167.64 cm 34.8 kg/m2 78014.2 3 g 65 /min 98 % 98 % 124/70 mm[Hg] Ami Davis MA [facility] 4 14:32:26 Date Recorded Body height Body mass index (BMI) Body weight Heart rate Respiratory rate Oxygen saturation Oxygen saturation in Arterial blood by Pulse oximetry Systolic And Diastolic Provider Name and Address Organization Details Last Updated DateTime 4 167.64 cm 34.4 kg/m2 25017.3 2 g 88 /min 14 /min 98 % 98 % 108/68 mm[Hg] ESTHER Whaley [facility] 4 14:48:22 Date Recorded Body height Body mass index (BMI) Body weight Heart rate Oxygen saturation Oxygen saturation in Arterial blood by Pulse oximetry Systolic And Diastolic Provider Name and Address Organization Details Last Updated DateTime 5 167.64 cm 35.3 kg/m2 97353.6 5 g 70 /min 97 % 97 % 138/72 mm[Hg] Ami Davis MA [facility] 5 14:53:00 Date Recorded Body height Body mass index (BMI) Body weight Heart rate Oxygen saturation Oxygen saturation in Arterial blood by Pulse oximetry Systolic And Diastolic Provider Name and Address Organization Details Last Updated DateTime 4 167.64 cm 33.8 kg/m2 78171.2 4 g 72 /min 99 % 99 % 110/64 mm[Hg] Monique Nance MA [facility] 4 15:16:50 Date Recorded Body height Body mass index (BMI) Body weight Oxygen saturation Oxygen saturation in Arterial blood by Pulse oximetry Heart rate Respiratory rate Systolic And Diastolic Provider Name and Address Organization Details Last Updated DateTime 4 167.64 cm 32.8 kg/m2 60592.3 9 g 97 % 97 % 64 /min 20 /min 118/68 mm[Hg] Monique Nance [place] [facility] [place] 4 16:14:16 Social History Question Answer Notes LastModified by Single Digits Details LastModified Time Tobacco Smoking Status Never Smoker Ritesh Clay MA [facility], [place] - [place] 08/10/2023 14:47:28 Do You Have An Advance Directive? No Information not available 08/10/2023 Are You Blind Or Do You Have Difficulty Seeing? No Information not available 08/10/2023 What Is Your Level Of Caffeine Consumption? Moderate Information not available 08/10/2023 Are You Deaf Or Do You Have Serious Difficulty Hearing? No Information not available 08/10/2023 What Type Of Diet Are You Following? REGULAR Information not available 08/10/2023 What Was The Date Of Your Most Recent Tobacco Screening? 11/14/2024 [email or web address] Information not available 11/14/2024 What Is Your Relationship Status? Information not available 08/10/2023 Do You Use Your Seat Belt Or Car Seat Routinely? Yes Information not available 08/31/2023 Do You Have Smoke And Carbon Monoxide Detectors In Your Home? Yes Information not available 08/10/2023 Do You Use Sunscreen Routinely? Yes Information not available 08/10/2023 Has Tobacco Cessation Counseling Been Provided? No Information not available 08/10/2023 Sex: Female Functional Status Question Answer Note LastModified by Single Digits Details LastModified Time Do you use any illicit or recreational drugs? No Information not available 08/10/2023 Do you or have you ever used any other forms of tobacco or nicotine? No Information not available 08/10/2023 What is your level of alcohol consumption? Occasional Information not available 08/10/2023 Are you currently employed? Yes Information not available 08/10/2023 Are you able to care for yourself independently? 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 None Information not available 08/10/2023 Mental Status Question Answer Note LastModified by Organization D etails LastModified Time Do you feel stressed (tense, restless, nervous, or anxious, or unable to sleep at night)? [id number] Information not available 08/10/2023 Family History Relationship Description Onset Age of this Age Resolved Age Notes LastModified by Organization Details LastModified Time Father Kidney disease [email or web address] Not available 07/23 14:46:43 Medical History Condition Response Coronary Artery Disease N Other Y Atrial Fibrillation N High Blood Pressure N Depression Y COPD N Blood Clots N Anxiety Disorder Y Muscle, Joint, or Bone Problems N Acid Reflux (GERD) N Cancer N Stroke N High Cholesterol N Liver Disease N Headaches N Kidney or Bladder Problems N Thyroid Problems N GI Problems N Skin Problems N Anemia N Heart Attack (TN) N Diabetes N Seizures/Epilepsy N Asthma N Allergies N Hepatitis N Heart Failure N Osteoporosis N Gynecological History Statement/Question Response Flow Moderate [...] Diagnosis SNOMED-CT Code Diagnosis ICD10 Code Diagnosis IMO Codes Diagnosis Note [id number] DONNY BAPTISTE [address] [place] [address] 11/25/2019 12:51:03 11/26/2019 12:17:33 Suspected COVID-19 011651045 Z03.384 [id number] Anna Marie Martinez MD [facility] [place] [address] [place] [address] 08/10/2023 14:08:37 08/10/2023 15:59:00 Sleep disorder 45361103 G47.9 Hereditary hemochromatosis 79014676 E83.110 [facility] [id number] F41.9 [id number] Anna Marie Martinez MD [facility] [place] [address] [place] [address] 08/31/2023 14:08:39 08/31/2023 15:37:25 Pain of left elbow joint 0316618320 6568364 M25.679 [id number] Anna Marie Martinez MD [facility] [place] [address] [place] [address] 10/12/2023 14:11:03 10/12/2023 15:25:46 Obesity 323393576 E66.8 [id number] Anna Marie Martinez MD [facility] [place] [address] [place] [address] 11/06/2023 14:16:15 11/06/2023 15:14:48 Obesity 224109859 E66.8 [id number] Anna Marie Martinez MD [facility] [place] [address] [place] [address] 12/11/2023 14:45:30 12/11/2023 15:51:30 Obesity 149076722 E66.8 [id number] Anna Marie Martinez MD [facility] [place] [address] [place] [address] 01/11/2024 15:51:14 01/11/2024 16:59:00 Obesity 273264704 E66.8 [id number] Anna Marie Martinez MD [facility] [place] [address] [place] [address] 11/14/2024 14:40:10 11/14/2024 15:46:35 Obese class II 6412882300 70188 E66.812 E66.3 2050042032 BMI 35.3 Neck pain 96264565 M54.2 28565 Health Concerns Section Related Observation LastModified by Organization Detai ls LastModified Time None Recorded Concern Status LastModified by Organization Details LastModified Time None Recorded Advance Directives Directive N: Payers Insurance Date Sequence Insurance Name Policy Number Policy Parekh Covered Member ID Parekh Member ID Guarantor Name 01/03/2025 1 [facility] [id number] Soham Brody [id number] [employer] 11/07/2023 [employer] [id number] Pauline Brody [employer] Notes Date Note Type Note Provider Name and Address Organization Details Recorded Time 10/12/2023 text/html wants go back on phentermine currently still seeing Psychiatry working through those issues Anna Marie Martinez MD Attn: Accounting, [address] [facility], [place], [address], [facility] [place] 11/21/2023 21:08:40 11/06/2023 text/html tolerating phentermine no side effects Anna Marie Martinez MD Attn: Accounting, [address] [facility], [place], [address], [facility] 11/06/2023 22:14:04 12/11/2023 text/html phentermine follow up she has lost about 5 lb with no side effects. She now has a calorie counting lisa her phone and she is using it regularly Anna Marie Martinez MD Attn: Accounting, [address] [facility], [place], [address], [place] [facility] 12/16/2023 13:51:49 01/11/2024 text/html weight loss follow up medicines no side effects she says that she wants to continue it because even though she has not had being weight loss in his curbing her appetite Anna Marie Martinez MD Attn: Accounting, [address] [place], [address], [place] [facility] 01/13/2024 13:53:06 11/14/2024 text/html Neck pain 1 month hurts to turn it to the right no radicular symptoms Advil really did not help all that much Anna Marie Martinez MD Attn: Accounting, [address] [place], [address], [place] [facility] 11/16/2024 17:57:08 OBGyn Episode No OBEpisode recorded.
--- OUTSIDE RECORDS SUMMARY | 2025-02-19 18:04 | XMS_ITS | Data Portability ---
Author Organization [facility] SPUR, P.CBria, [place] Address [address] [place] [address] Care Team Providers Care Dog Sitter Name Role Phone ANNA MARIE NELSON Primary Care Provider Assessment Encounter Date Assessment Date Assessment LastModified [...] recorded. Lab vitamin B12, serum 2019 020 [facility]), [address] [facility] , [address], [place], [address], 0 00:37:32 CBC w/ auto diff 2019 020 [facility] ([facility]), [address] [facility] , [address], [place], [address], 0 00:37:30 ferritin, serum or plasma 2019 020 [facility] ([facility]), [address] [facility] [address], [place], [address], 0 00:37:33 folate, serum 2019 020 [facility] ([facility]), [address] [facility] [address], [place], [address], 0 00:37:33 TIBC (total iron-bindin g capacity), serum 2019 020 [facility] ([facility]), [address] [facility] [address], [place], [address], 0 00:37:32 iron, serum 2019 020 [facility] ([facility]), [address] [facility] [address], [place], [address], 0 00:37:31 retic count, blood 2019 020 [facility] ([facility]), [address] [facility] [address], [place], [address], 0 00:37:30 CMP, serum or plasma 2019 020 [facility] ([facility]), [address] [facility] [address], [place], [address], 0 00:37:31 CBC 2019 020 [facility] ([facility]), [address] [facility] [address], [place], [address], 0 17:34:17 TSH, serum or plasma 2019 020 [facility] ([facility]), [address] [facility] [address] [address], [address], [place], [address], 0 00:37:34 vitamin D, 25-hydroxy, total, serum 2019 020 [facility] ([facility]), [address] [facility] [address], [address], [place], [address], 0 00:37:34 HbA1c (hemoglobin A1c), blood 2019 020 [facility] ([facility]), [address] [facility] [address], [address], [place], [address], 0 00:37:33 Referral urogynecolo gist referral 2022 023 MOSESAURA Farley MD, [address] [place] [address] [address], [address], [place], [address], 3 05:01:35 pelvic floor therapy referral 2022 023 [facility], [address], [address], [place], [address], 3 05:01:35 Procedures None recorded. Surgeries None recorded. Imaging None recorded. Medication Orders Xulane 150 mcg-35 mcg/24 hr transdermal patch 2022 023 [id number], [address] [place], [address], 3 10:15:42 Patient TargetsNo targets recorded. Patient Instructions Encounter Date Encounter Id Patient Instructions Last Modified By Organization Details Last Modified Time 12/10/2019 [id number] [email or web address] Not available 14:42:34 12/19/2019 [id number] [email or web address] Not available 12:29:54 Reason for Referral Urogynecologist Referral for Female urinary stress incontinence Referring Physician: Marianela Chowdhury, UROLOGY PHYSICIAN ASSISTANT, Encounter Date: 06/23/2022 Pelvic Floor Therapy Referra l for Female urinary stress incontinence Stress incontinence Referring Physician: Marianela Chowdhury, UROLOGY PHYSICIAN ASSISTANT, Encounter Date: 06/23/2022 Results Created Date Observation Date Name Description Value Unit Range Abnormal Flag Note LastModifiedBy Organization Detail LastModifiedTime 12/10/19 20 12/11/2019 CBC w/ auto diff WBC 5.4 K/uL 3.8-11 .5 Not Available [facility] ([facility]) [address] [place] [address] Dr [address], [place], [address], 12/12/2019 00:37:29 12/10/1912/11/2019 CBC w/ auto diff red blood cell count (RBC) 4.37 M/mm3 3.60-5 .30 Not Available [facility] ([facility] [employer]) [address] [place] [address] Dr [address], [place], [address], 12/12/2019 00:37:29 12/10/19 20 12/11/2019 CBC w/ auto diff hemoglobin (HGB) 14.5 gm/dL 11.5-1 5.5 Not Available [facility] ([facility]) [address] [place] [address] Dr Guillaume, [place], [address], 12/12/2019 00:37:29 12/10/1912/11/2019 CBC w/ auto diff hematocrit (HCT) 41.5 % 35.2-4 6.4 Not Available [facility] ([facility] [employer]) [address] [place] [address] Dr Guillaume, [place], [address], 12/12/2019 00:37:29 12/10/1912/11/2019 CBC w/ auto diff MCV 95.0 fL 79.0-9 9.0 Not Available [facility] ([facility]) [address] [place] [address] Dr Gu[address]ume, [place], [address], 12/12/2019 00:37:29 12/10/19 20 12/11/2019 CBC w/ auto diff MCH 33.2 pg 26.9-3 5.0 Not Available [facility] ([facility]) [address] [place] [address] Dr Guillaume, [place], [address], 12/12/2019 00:37:29 12/10/19 20 12/11/2019 CBC w/ auto diff MCHC 34.9 g/dL 30.4-3 4.8 high Not Available [facility] ([facility]) [address] [place] [address] Dr [address]ume, [place], [address], 12/12/2019 00:37:29 12/10/19 20 12/11/2019 CBC w/ auto diff RDW 41.7 fL 38.6-5 3.8 Not Available [facility] ([facility]) [address] [place] [address] Dr Gu[address]ume, [place], [address], 12/12/2019 00:37:29 12/10/19 20 12/11/2019 CBC w/ auto diff platelet count 291 K/cum m 137-39 7 Not Available [facility] ([facility]) [address] [place] [address] Dr [address]ume, [place], [address], 12/12/2019 00:37:29 12/10/19 20 12/11/2019 CBC w/ auto diff neutrophils automated 64.1 % 41.0-7 7.0 Not Available [facility] ([facility]) [address] [place] [address] Dr Guillaume, [place], [address], 12/12/2019 00:37:29 12/10/19 20 12/11/2019 CBC w/ auto diff lymphocytes automated 25.8 % 14.0-4 8.0 Not Available [facility] ([facility]) [address] [place] [address] Dr [address]illaume, [place], [address], 12/12/2019 00:37:29 12/10/19 20 12/11/2019 CBC w/ auto diff monocytes automated 6.4 % 4.0-13 .0 Not Available [facility] ([facility]) [address] [place] [address] Dr Guillaume, [place], [address], 12/12/2019 00:37:29 12/10/19 20 12/11/2019 CBC w/ auto diff eosinophils automated 2.8 % 0.0-8. 0 Not Available [facility] ([facility]) [address] [place] [address] Dr [address]illaume, [place], [address], 12/12/2019 00:37:29 12/10/19 20 12/11/2019 CBC w/ auto diff basophils automated 0.7 % 0.0-1. 5 Not Available [facility]) [address] [place] [address] Dr Guillaume, [place], [address], 12/12/2019 00:37:29 12/10/19 20 12/11/2019 CBC w/ auto diff immature granulocyte automated 0.2 % 0.0-1. 0 Not Available [facility] ([facility]) [address] [place] [address] Dr [address]illaume, [place], [address], 12/12/2019 00:37:29 12/10/19 20 12/11/2019 retic count , blood reticulocyte count 1.6 % 0.5-2. 1 Not Available [facility] ([facility]) [address] [place] [address] Dr Guillaume, [place], [address], 12/12/2019 00:37:30 12/10/19 20 12/11/2019 retic ulocy te count , absol reynaldo, blood corrected retic count 1.6 % 0.5-2. 1 Corre cted Retic Count = Autom ated Retic Count * HCT / 42 Not Available [facility] ([facility]) [address] [place] [address] Dr Guillaume, [place], [address], 12/12/2019 00:37:30 12/10/19 20 12/11/2019 CMP, serum or plasm a sodium 143 mEq/L 135-14 5 Not Available [facility] ([facility]) [address] [place] [address] Dr Guillaume, [place], [address], 12/12/2019 00:37:31 12/10/19 20 12/11/2019 CMP, serum or plasm a potassium 4.2 mEq/L 3.5-5. 3 Not Available [facility] ([facility]) [address] [place] [address] Dr Guillaume, [place], [address], 12/12/2019 00:37:31 12/10/19 20 12/11/2019 CMP, serum or plasm a chloride 107 mEq/L 97-108 Not Available [facility] ([facility]) [address] [place] [address] Dr Guillaume, [place], [address], 12/12/2019 00:37:31 12/10/19 20 12/11/2019 CMP, serum or plasm a CO2 26 mEq/L 22-32 Not Available [facility] ([facility]) [address] [place] [address] Dr Guillaume, [place], [address], 12/12/2019 00:37:31 12/10/19 20 12/11/2019 CMP, serum or plasm a glucose 89 mg/dL 65-99 Not Available [facility] ([facility]) [address] [place] [address] Dr Guillaume, [place], [address], 12/12/2019 00:37:31 12/10/19 20 12/11/2019 CMP, serum or plasm a BUN 12 mg/dL 6-20 Not Available [facility] ([facility]) [address] [place] [address] Dr Guillaume, [place], [address], 12/12/2019 00:37:31 12/10/19 20 12/11/2019 CMP, serum or plasm a creatinine 0.80 mg/dL 0.50-1 .00 Not Available [facility] ([facility]) [address] [place] [address] Dr Guillaume, [place], [address], 12/12/2019 00:37:31 12/10/19 20 12/11/2019 CMP, serum or plasm a calcium 9.1 mg/dL 8.6-10 .4 Not Available [facility] ([facility]) [address] [place] [address] Dr Guillaume, [place], [address], 12/12/2019 00:37:31 12/10/1912/11/2019 CMP, serum or plasm a protein 6.5 g/dL 6.0-8. 3 Not Available [facility] ([facility]) [address] [place] [address] Dr Guillaume, [place], [address], 12/12/2019 00:37:31 12/10/1912/11/2019 CMP, serum or plasm a albumin 4.5 g/dL 3.5-5. 3 Not Available [facility] ([facility]) [address] [place] [address] Dr [address]illaume, [place], [address], 12/12/2019 00:37:31 12/10/1912/11/2019 CMP, serum or plasm a alkaline phosphatase 63 IU/L 35-121 Not Available [facility] ([facility]) [address] [place] [address] Dr Guillaume, [place], [address], 12/12/2019 00:37:31 12/10/19 20 12/11/2019 CMP, serum or plasm a ALT (SGPT) 39 IU/L <5-47 Not Available [facility] ([facility]) [address] [place] [address] Dr Guillaume, [place], [address], 12/12/2019 00:37:31 12/10/19 20 12/11/2019 CMP, serum or plasm a AST (SGOT) 25 IU/L <5-40 Not Available [facility] ([facility]) [address] [place] [address] Dr Guillaume, [place], [address], 12/12/2019 00:37:31 12/10/19 20 12/11/2019 CMP, serum or plasm a bilirubin, total 0.5 mg/dL <0.2-1 .2 Not Available [facility]) [address] [place] [address] Dr Guillaume, [place], [address], 12/12/2019 00:37:31 12/10/19 20 12/11/2019 CMP, serum or plasm a A/G ratio 2.3 mg/dL 1.1-2. [address] [facility]) [address] [place] [address] Dr Guillaume, [place], [address], 12/12/2019 00:37:31 12/10/19 20 12/11/2019 GFR, estim ated (eGFR ), serum estimated GFR (black) 112 mL/mi n/1.7 3m2 >[address] [facility] ([facility]) [address] [place] [address] Dr Guillaume, [place], [address], 12/12/2019 00:37:31 12/10/19 20 12/11/2019 GFR, estim [...] e decre ase G5 14 or less Kidtodd y failu re *In the absen ce of kidne y damag e, neith er GFR categ [...] e mass or diet. Not Available [facility] ([facility]) [facility] [facility] [address], [place], [address], 12/12/2019 00:37:31 12/10/19 20 12/11/2019 iron, serum iron 233 ug/dL 37-145 high Not Available [facility] ([facility]) [address] [place] [address] Dr [address]ume, [place], [address], 12/12/2019 00:37:31 12/10/19 20 12/11/2019 TIBC (tota l iron- josias ng capac ity), serum iron binding cap See Below ug/dL 250-45 0 low Unabl e to calcu late IBC when IRON or UIBC is outsi de instr ument detec table limit s. Not Available [facility] ([facility]) [facility] [address], [place], [address], 12/12/2019 00:37:32 12/10/19 20 12/11/2019 iron satur ation , serum percent saturation See Below % 15-50 low Unabl e to calcu late SAT when IRON or UIBC is outsi de instr ument detec table limit s Not Available [facility] ([facility]) [address] [place] [address] Dr Guillaume, [place], [address], 12/12/2019 00:37:32 12/10/19 20 12/11/2019 vitam in B12, serum vitamin B12 829 pg/mL 232-12 45 Not Available [facility] ([facility]) [address] [facility] [address], [place], [address], 12/12/2019 00:37:32 12/10/19 20 12/11/2019 diane tin, serum or plasm a ferritin 99.4 NG/mL 13.0-1 50[address] [facility] ([facility]) [facility] [address], [place], [address], 12/12/2019 00:37:33 12/10/19 20 12/11/2019 folat e, serum folate 12.50 NG/mL >4.59 Not Available [facility] ([facility]) [address] [place] [address] Dr [address], [place], [address], 12/12/2019 00:37:33 12/10/19 20 12/11/2019 HbA1c (hemo globi n A1c), blood hemoglobin A1C 4.3 % <5.7 The follo wing HbA1c range s recom jesenia d by the Ameri can Diabe kamar Assoc iatio n (ADA) may be used as an aid in the diagn osis of diabe kamar melli tus. HA1c Sugge sted Diagn osis >=6.5 % Diabe tic 5.7% - 6.4% Pre-D iabet ic <5.7% Non-D iabet ic Not Available [facility] ([facility]) [address] [place] [address] Dr Guillaume, [place], [address], 12/12/2019 00:37:33 12/10/19 20 12/11/2019 estim ated avera ge gluco se estimated average glucose 77 mg/dL [place] ge Gluco se is calcu lated using the equat ion AG = (28.7 x HgbA1 c) - 46.7 based on the guide lines estab lishe d by the ADA. Not Available [facility] ([facility]) [facility] [address], [place], [address], 12/12/2019 00:37:34 12/10/19 20 12/11/2019 TSH, serum or plasm a TSH reflex to FT4 1.81 mU/L 0.27-4 .20 Not Available [facility] ([facility]) [address] [facility] [address], [place], [address], 12/12/2019 00:37:34 12/10/19 20 12/11/2019 vitam in [...] corre latio n requi red. Not Available [facility] ([facility] [employer]) [address] [facility] [address] [address], [place], [address], 12/12/2019 00:37:34 06/24/19 23 06/23/2022 IMAGE GUIDE D PAP AND HPV REGAR DLESS image guided Pap, HPV regardless of Pap result SEE RESULT S BELOW CASE REPOR T: Cytol ogy Gynec ologi kassandra Repor t Case: [id number] Autho rimukeshn g Provi maria eugenia: Fior Tejeda MD Colle cted: 06/23 1429 Order ing Locat ion: [place] [facility] Recei chris: 06/24 0105 First Scree n: Margie Hale ica Rescr een: Miguelina Childress, CT Speci men: Scree cornelia Pap - Image d, Cervi x STATE MENT OF ADEQU ACY: Satis facto ry for evalu ation Trans forma tion zone compo nent absen t Parti ally obscu ring infla mmati on prese nt. The absen ce of an endoc ervic al compo nent was confi rmed by an addit ional scree ner. FINAL DIAGN OSIS: Negat yady for Intra epith elial Lesio n or Hilario rivera (NIL) . Elect dawn knight alonzo d by Miguelina Childress, CT on 023 at 7:39 AM ----- ----- ----- ----- ----- ----- ----- ----- ----- ----- ----- ----- ----- ----- ----- ----- ----- ---- HPV RESUL TS: HPV mRNA E6/E7 : No HPV mRNA Detec whitley NOTE: This high risk HPV mRNA assay detec ts fourt een high- risk HPV types (16, 18, 31, 33, 35, 39, 45, 51, 52, 56, 58, 59, 66, 68) witho ut diffe renti ation . COMME NT: Note: This speci men was revie wed by a Cytot echno logis t and/o r Patho logis t (as indic ated in this repor t) after evalu ation using the Thinp rep Imagi ng Syste m. CLINI KASSANDRA INFOR MATIO N: Menst rual Statu s: LMP (if appli cable ): Clini kassandra Histo ry/Pr eviou s Pap: Type of Neopl chip (if appli cable ): Signi fican t Clini kassandra Findi ngs: Other Histo ry: Hormo erin (if appli cable ): PAP EDUCA JOVON L NOTE: The Pap Test is a scree cornelia test with an inher ent false negat yady rate. Liqui d-bas ed sampl ing may decre ase, but will not elimi vania, false negat yady resul ts. A negat yady resul t does not precl ude the prese nce and/o r devel opmen t of disea se, since the prese nce of abnor mal cells in the sampl e depen ds on the locat ion of the lesio n and sampl ing techn ique. Hermelindo nued regul ar scree cornelia is the best metho d of cance r preve ntion . If repor whitley cytol ogic findi ng do not corre late with physi kassandra and/o r histo rical findi ngs, furth er inves tigat ion is recom jesenia d, as clini bar wills nted. Not Available [facility] (Lab) [address], [place], [address], 06/29/2022 08:42:54 Result Notes None recorded. Problems Name Problem SNOMED Code Status Onset Date Resolution Date Notes Provider Name and Address Organization Details Recorded Time Primigrav jennifer 059322181 Active 2010 Supervisio n of normal first ; Practice ID: 0001 Not Available [facility] 0 15:40:12 anatomy study Active 2010 S[facility]N [facility] SURVEY;Pra ctice ID: 0001 Not Available [facility] 0 15:40:12 Premature labor 9887155 Active 2010 LABOR;Prac rena ID: 0001 Not Available [facility] 0 15:40:13 Delivery normal 64765946 Active 2010 Normal delivery;P ractice ID: 0001 Not Available [facility] 0 15:40:16 Single live from teran 108305804 Active 2010 Mother with single liveborn;P ractice ID: 0001 Not Available [employer] 0 15:40:16 Open wound of vulva 821707305 Active 2010 Open wound of vulva, without mention of complicati on;Recorde d Elsewhere: No Locatio n: [facility] rce: EHR Chroni c: N Practice ID: 0001 Billa ble Time: 10:45:00 AM Not Available [employer] 0 15:40:13 Postpartu m care Active 2010 Routine follow-up; Recorded Elsewhere: No Locatio n: [facility] rce: EHR Chroni c: N Practice ID: 0001 Billa ble Time: 02:15:00 PM Not Available [facility] 0 15:40:10 Dysfuncti onal uterine bleeding Active 2010 Other disorders of menstruati on and other abnormal bleeding from female genital tract;Mirza rded Elsewhere: No Locatio n: [facility] rce: EHR Chroni c: N Practice ID: 0001 Billa ble Time: 02:15:00 PM Not Available [facility] 0 15:40:10 Pain of breast 17652079 Active 2010 Mastodynia ;Recorded Elsewhere: No Locatio n: [facility] rce: EHR Chroni c: N Practice ID: 0001 Billa ble Time: 02:00:00 PM Not Available [facility] 0 15:40:11 Breast engorgeme nt in , the puerperiu m or - delivered with complicat ion 560616779 Active 2010 engorgemen t of breasts associated with childbirth ;Recorded Elsewhere: No Locatio n: [facility] rce: EHR Chroni c: N Practice ID: 0001 Billa ble Time: 02:00:00 PM Not Available [facility] 0 15:40:12 Specializ ed medical examinati on Active 2011 Gynecologi kassandra Examinatio n;Recorded Elsewhere: No Locatio n: [facility] rce: EHR Chroni c: N Practice ID: 0001 Billa ble Time: 10:15:00 AM Not Available [facility] 0 15:40:10 Mental disorder during - baby delivered 043383707 Active 2011 mental disorders of mother;Rec orded Elsewhere: No Locatio n: [facility] rce: EHR Chroni c: N Practice ID: 0001 Billa ble Time: 10:15:00 AM Not Available [facility] 0 15:40:11 Anxiety state 382893848 Active 2011 Anxiety;Re corded Elsewhere: No Locatio n: [facility] rce: EHR Chroni c: N Practice ID: 0001 Billa ble Time: 09:30:00 AM Not Available [facility] 0 15:40:11 Ill-defin ed intestina l infection Active 2011 No Show Fee;Practi ce ID: 0001 Not Available [facility] 0 15:40:17 test positive 857922090 Active 2012 examinatio n or test, positive result;Rec orded Elsewhere: No Locatio n: [facility] rce: EHR Chroni c: N Practice ID: 0001 Billa ble Time: 10:00:00 AM [facility] Available [facility] 0 15:40:11 Amenorrhe a 83346787 Active 2012 Absence of menstruati on;Recorde d Elsewhere: No Locatio n: [facility] rce: EHR Chroni c: N Practice ID: 0001 Billa ble Time: 10:00:00 AM Not Available [facility] 0 15:40:12 Nausea 697743126 Active 2012 Nausea alone;Mirza rded Elsewhere: No Locatio n: [facility] rce: EHR Chroni c: N Practice ID: 0001 Billa ble Time: 10:00:00 AM Not Available [facility] 0 15:40:12 Ultrasono graphy Active 2012 screening for malformati on using ultrasonic s;Recorded Elsewhere: No Locatio n: [facility] rce: EHR Chroni c: N Practice ID: 0001 Billa ble Time: 10:15:00 AM Not Available [facility] 0 15:40:11 screening Active 2012 screening for malformati on using ultrasonic s;Recorded Elsewhere: No Locatio n: [facility] rce: EHR Chroni c: N Practice ID: 0001 Billa ble Time: 10:15:00 AM Not Available [employer] 0 15:40:11 Congenita l malformat ion [id number] Active 2012 screening for malformati on using ultrasonic s;Recorded Elsewhere: No Locatio n: [facility] rce: EHR Chroni c: N Practice ID: 0001 Billa ble Time: 10:15:00 AM Not Available [employer] 0 15:40:11 Headache 68474920 Active 2012 Headache;R ecorded Elsewhere: No Locatio n: [facility] rce: EHR Chroni c: N Practice ID: 0001 Billa ble Time: 08:30:00 AM Not Available [employer] 0 15:40:09 Contact dermatiti s 67252765 Active 2012 Contact dermatitis ;Recorded Elsewhere: No Locatio n: [facility] rce: EHR Chroni c: N Practice ID: 0001 Billa ble Time: 04:00:00 PM Not Available [facility] 0 15:40:09 Routine care Active 2012 Supervisio n of other normal ; Recorded Elsewhere: No Locatio n: [facility] rce: EHR Chroni c: N Practice ID: 0001 Billa ble Time: 04:00:00 PM Not Available [facility] 0 15:40:11 Leukorrhe a 393085180 Active 2012 Leukorrhea , not specified as infective; Practice ID: 0001 Not Available [facility] 0 15:40:15 Complicat ion related to Active 2012 Weight Insufficie nt Antepartum ;Practice ID: 0001 Not Available [facility] 0 15:40:15 Candidias is 61508313 Active 2013 Candidiasi s of unspecifie d site;Recor ded Elsewhere: No Locatio n: [facility] rce: EHR Chroni c: Y Practice ID: 0001 Billa ble Time: 11:15:00 AM Not Available [facility] 0 15:40:10 Screening for malignant neoplasm of cervix Active 2013 Screening for malignant neoplasms of the cervix;Rec orded Elsewhere: No Locatio n: [facility] rce: EHR Chroni c: N Practice ID: 0001 Billa ble Time: 11:00:00 AM Not Available [employer] 0 15:40:10 Right upper quadrant pain 842062568 Active 2013 RUQ pain;Recor ded Elsewhere: No Locatio n: [facility] rce: EHR Chroni c: N Practice ID: 0001 Billa ble Time: 08:15:00 AM Not Available [facility] 0 15:40:10 test negative 904656328 Active 2013 examinatio n or test, negative result;Rec orded Elsewhere: No Locatio n: [facility] rce: EHR Chroni c: N Practice ID: 0001 Billa ble Time: 08:15:00 AM Not Available [facility] 0 15:40:12 Syphilis test finding 384456484 Active 2014 Encntr screen for infections w sexl mode of transmiss; Recorded Elsewhere: No Locatio n: [facility] rce: EHR Chroni c: N Practice ID: 0001 Billa ble Time: 09:30:00 AM Not Available [facility] 0 15:40:10 Infection screening Active 2014 Encounter for screening for oth infec/para stc diseases;R ecorded Elsewhere: No Locatio n: [facility] rce: EHR Chroni c: N Practice ID: 0001 Billa ble Time: 09:30:00 AM Not Available [facility] 0 15:40:[address] Concept Active 2014 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 abnormal findings;R ecorded Elsewhere: No Locatio n: [facility] rce: EHR Chroni c: N Practice ID: 0001 Billa ble Time: 09:30:00 AM Not Available [facility] 0 15:40:11 Dysuria 88654494 Active 2014 Dysuria;Re corded Elsewhere: No Locatio n: [facility] rce: EHR Chroni c: N Practice ID: 0001 Billa ble Time: 09:30:00 AM Not Available [facility] 0 15:40:11 Pelvic and perineal pain 835326493 Active 2014 Pelvic and perineal pain;Recor ded Elsewhere: No Locatio n: [facility] rce: EHR Chroni c: N Practice ID: 0001 Billa ble Time: 08:45:00 AM Not Available [facility] 0 15:40:09 Dyspareun ia 76328468 Active 2014 Dyspareuni a;Recorded Elsewhere: No Locatio n: [facility] rce: EHR Chroni c: N Practice ID: 0001 Billa ble Time: 08:15:00 AM Not Available [facility] 0 15:40:10 Right lower quadrant pain 799063994 Active 2014 RLQ pain;Recor ded Elsewhere: No Locatio n: [facility] rce: EHR Chroni c: N Practice ID: 0001 Billa ble Time: 08:45:00 AM Not Available [facility] 0 15:40:[address] Concept Active 2018 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 Procedures Surgical History Date Name Laterality Status Provider Name and Address Organization Details Recorded Time 01/03/20 19 Date of Last Pap Smear completed Annie Dyer [facility] 12/19/2019 11:55:49 Cholecystectomy completed Smiley Montelongo [facility] 12/10/2019 14:28:39 Imaging Results None recorded. [...] Elsewher e: No Locat ion: Paul justyna [facility] odify By: kyree fernandez DateTime : 01/25/20 11 10:45:00 AM Not [...] Prescrib ed Elsewher e: Yes Loca tion: [facility] odify By: aron cuellodale DateTime : 01/03/20 19 09:30:00 AM Not Available Not Available Not Available tramadol 50 mg tablet take 1 tablet by oral route every 6 hours as needed 01/02 completed Prescrib ed Elsewher e: Yes [facility] By: aron fernandez DateTime : 02/09/20 17 02:15:00 PM Not Available Not Available Not Available Procardia 10 mg capsule take 1 capsule (10MG) by oral route q 4-hrs 02/16 completed Prescrib ed Elsewher e: No Locat ion: [facility] odify By: kyree fernandez DateTime : 12/24/19 11 11:44:16 AM Not Available Not Available Not Available Zofran 4 mg tablet take 2 tablet by oral route every 8 hours for 2 days 02/09 completed Prescrib ed Elsewher e: Yes Loca tion: Shahbaz lion [facility] odify By: alexander holman DateTime : 02/09/20 17 02:15:00 PM Not Available Not Available Not Available Metrogel Vaginal 0.75 % (37.5 mg/5 gram) insert 1 applicat orful by vaginal route every day at bedtime 01/30 completed Prescrib ed Elsewher e: No Locat ion: Shahbaz lion [facility] odify By: abad Peters ter DateTime : 01/23/20 14 12:48:57 PM Not Available Not Available Not Available Zoloft 50 mg tablet take 1 tablet (50MG) by oral route every day 10/16 completed Prescrib ed Elsewher e: No [facility] odify By: marco Peters ter DateTime : 05/25/19 12 09:45:00 AM Not Available Not Available Not Available Diflucan 100 mg tablet take 1 tablet (100MG) by oral route every day 12/24 completed Prescrib ed Elsewher e: No Locat ion: [facility] justyna [facility] odify By: cleopatra fernandez DateTime : 07/19/19 14 11:15:00 AM Not [...] mcg (50,000 unit) capsule take 1 capsule (35170SD ITS) by oral route every week 07/02 completed Prescrib ed Elsewher e: No Locat ion: Shahbaz lion [facility] odify By: ирина cuellounter DateTime : 11/29/19 13 01:20:03 PM Not Available Not Available Not Available amoxicill in 875 mg-potass ium clavulana te 125 mg tablet 12/09 completed Not Available Not Available Not Available Depo-Prov era 150 mg/mL intramusc ular syringe inject 1 millilit er (150MG) by intramus cular route every 3 months 05/25 completed Prescrib ed Elsewher e: No Locat ion: Shahbaz lion [facility] odify By: kyree cuellounter DateTime : 02/17/20 11 02:15:00 PM Not [...] ed Elsewher e: No Locat ion: Shahbaz lion [facility] odify By: cleopatra cuellounter DateTime : 05/24/19 14 03:15:39 PM Not Available Not Available Not Available 10 mg-400 mcg capsule 10/16 completed Prescrib ed Elsewher e: Yes Loca tion: Shahbaz lion [facility] odify By: kyree cuellountdale DateTime : 05/04/19 12 10:15:00 AM Not Available Not Available Not Available Triveen-D uo DHA 29 mg-1 mg-400 mg oral pack take 1 by Oral route every day 05/24 completed Prescrib ed Elsewher e: No Locat ion: Shahbaz lion [facility] odify By: benjamín cuellounter DateTime : 10/17/19 13 10:00:00 AM Not Available Not Available Not Available 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 REPEAT CYCLE. active Not Available Not Available No t Available Vitals Date Recorded Body height Body mass index (BMI) Body weight Systolic And Diastolic Provider Name and Address Organization Details Last Updated DateTime 06/23/2022 170.18 cm 29.9 kg/m2 75364.14 g 120/82 mm[Hg] Michelle Fisher [facility] 06/23/2022 09:45:56 Date Recorded Body height Body mass index (BMI) Body weight Systolic And Diastolic Provider Name and Address Organization Details Last Updated DateTime 12/10/2019 170.18 cm 30.1 kg/m2 02451.74 g 107/72 mm[Hg] Smiley Montelongo [facility] 12/10/2019 14:26:52 Date Recorded Body height Body mass index (BMI) Body weight Systolic And Diastolic Provider Name and Address Organization Details Last Updated DateTime 12/19/2019 170.18 cm 29.6 kg/m2 10336.96 g 110/67 mm[Hg] Annie Dyer [facility] 12/19/2019 12:01:08 Social History None recorded. Functional Status Question Answer Note LastModified by Organizat ion Details LastModified Time What is your level of alcohol consumption? None Information not available 12/19/2019 What is your exercise level? Occasional Information [...] (Food, seasonal, environmental ) N Other Y Drug/Latex Allergies/Reactions N Blood Transfusion N Breast Cancer N Dermatologic Disorders N Lung Disease N Defects or Inherited Disease N Breast Problem N Gestational Diabetes N Hematologic disorders N Anesthesia Complications N History of STI Y Deep Vein Thrombosis N Polycystic ovary syndrome N Anxiety Disorder Y Autoimmune disease N Arthritis N Polyps N Infertility N Acid Reflux (GERD) N History of abnormal pap N Cancer N Varicosities N Stroke N Neurologic/Epilepsy N Endometriosis N High Cholesterol N Fibromyalgia N Headaches N Kidney Disease N Heart Problems N Thyroid Problems N Kidney or Bladder Problems N GI Problems N Eating Disorder [...] ICD10 Code Diagnosis IMO Codes Diagnosis Note [id number] [facility] [address] [address] 12/10/2019 14:20:48 12/10/2019 15:02:54 Malaise and fatigue 878591847 R53.83 R63.5 F41.8 Gained 30# within 30d. Tired all the time. Anxiety. Complete lab work up & will discuss results in 1wks at f/u. Menorrhagia 039652453 N9 2.0 Agrees to pelvic exam with next visit along with WWE & consider TVUS moving forward if labs are wnl. [id number] Marianela Chowdhury , [facility] [address] [address] 12/19/2019 11:53:04 12/19/2019 12:34:03 Serum iron above reference range 532853322 R79.0 Referred to Hematology . Has appt 01/06/2020 Menorrhagia 964394388 N9 2.0 We discussed restarting OCP which [...] read and signed. Pt verbalized understand ing. [id number] Marianela Chowdhury , [facility] [address] [address] 06/23/2022 09:36:15 06/23/2022 10:23:45 Gynecologic examination 09954095 Z01.419 Take Calcium with Vitamin D 1200mg [...] Screen Routine Labs Contracept ion care management 173460984 Z30.9 Discussed all control options in great [...] RTO x 3 mos med check Female uri nary stress incontinence 34047820 N39.3 Referrals sent Health Concerns Section Related Observation LastModified by Organization Detai ls LastModified Time None Recorded Concern Status LastModified by Organization Details LastModified Time None Recorded Advance Directives Directive None Recorded Payers Insurance Date Sequence Insurance Name Policy Number Policy Parekh Covered Member ID Parekh Member ID Guarantor Name 09/19/2022 1 [facility] [id number] Soham Brody [id number] Pauline Brody Notes Date Note Type Note Provider Name and Address Organization Details Recorded Time 0 text/html ROS as noted in the HPI Patient presents with multiple complaints. 1. Abn Weight gain/Fatigue/Anxiety Gained 30# in less than a month [...] are heavier the last couple of months. Marianela Chowdhury DONNY- [address], [place], [address], , [facility] 12/10/2019 14:47:52 0 text/html ROS as noted in the HPI Patient is here to f/u from recent lab work & menorrhagia. Marianela Chowdhury DONNY- [address], [place], [address], , [facility] 12/19/2019 12:30:19 3 text/html Annual GYNReported by PatientGenitourinary symptomsFor urinary symptoms, patient reportsstress incontinencebut reportsno hematuria. For menstrual cycle, patient reportsnormal menses. For vulva, patient reportsno genital lesion. For vagina, patient reportsnormal vaginal discharge.Breast symptomsFor breast, patient reportsno breast pain,no breast lump, andno nipple discharge.ContraceptionFo r current contraception, patient reportsbirth control not practiced.Endocrine symptomsFor sexual complaints, patient reportsno sexual complaints,no pain during intercourse, andnormal libido. For menopausal symptoms, patient reportsno menopausal symptomsandnormal vaginal lubrication.Psychological symptomsFor psychological symptoms, patient reportsno depression,no anxiety, andno pmdd.Preventative measuresFor preventive measures, patient reportsencourage self breast examination,encourage regular exercise,encourage no tobacco use,encourage regular mammograms starting age 40, andfollowed with yearly pap smears. Marianela Chowdhury [facility] [address], [place], [address], [facility] 06/23/2022 10:19:45 OBGyn Episode Ob Episode Information Episode Created Date Number of Fetuses Patient Bloodtype Patient rh Status Prepregnancy Weight lbs Domestic Partner Domestic Partner Phone Father Name Pet Crematory Worker Status 12/10/19 20 1 CLOSED Fetus Data [...] Domestic Partner Domestic Partner Phone Father Name Pet Crematory Worker Status 12/10/19 20 1 CLOSED Fetus Data [...]
--- OUTSIDE RECORDS SUMMARY | 2025-02-19 18:04 | XMS_ITS | Clinical Summary ---
Author Organization [facility] Justin Tang Address [address] [place] [address] Care Team Providers Care Application Services Manager Name Role Phone Gregg Martinez MD Primary Care Provider [phone] Allergies Active Allergy Reactions Criticality Noted Date Comments Shrimp Hives High 01/06/2020 Medications No known medications Active Problems Problem Noted Date Diagnosed Date Hereditary hemochromatosis 01/27/2020 Encounters Date Type Department Care Team Description 02/12/2025 2:30 PM CDT Office Visit [facility] Oncology and Hematology - [place] [address] [place] [phone] Ethan Delgado MD Hereditary hemochromatosis (Primary Dx) 02/12/2025 Orders Only [facility] Oncology and [facility] [address] [place] [address] Ethan Delgado MD 02/11/2025 External Device Data STL ABSTRACTION Provider, Abstract 12/11/2024 External Device Data STL ABSTRACTION Provider, Abstract 12/10/2024 External Device Data STL ABSTRACTION Provider, Abstract 11/26/2024 External Device Data STL ABSTRACTION Provider, Abstract [...] Sign Reading Time Taken Comments Blood Pressure 120/88 02/12/2025 2:16 PM CDT Pulse 82 02/12/2025 2:16 PM CDT Temperature 36.6 C (97.8 F) 02/12/2025 2:16 PM CDT Respiratory Rate 14 02/12/2025 2:16 PM CDT Oxygen Saturation 96% 02/12/2025 2:16 PM CDT Inhaled Oxygen Concentration - - Weight 99.8 kg (220 lb) 02/12/2025 2:16 PM CDT Height 170.2 cm (5' 7) 01/27/2020 2:02 PM CDT Body Mass Index 34.46 01/27/2020 2:02 PM CDT Plan of Treatment Upcoming Encounters Date Type Department Care Team (Late st Contact Info) Description 05/14/2025 3:30 PM SUPERVISOR SCRAP PREPARATION Office Visit [facility] Oncology and Hematology - [place] [address] [facility] [address] [place] [address] Ethan Delgado MD [address] [facility] [address] [place] [address] Health Maintenance Due Date Last Done Comments Pre-Diabetes and Diabetes Screening 1986 DTAP/TDAP/TD VACCINES (1 - Tdap) 2005 HEPATITIS B VACCINES (1 of 3 - 19+ 3-dose series) 11/2005 HPV/Cotest (21-29) 11/30/2007 HPV VACCINES (1 - 3-dose SCDM series) 2013 HPV/Cotest (30-65) 2016 INFLUENZA VACCINE (#1) 2024 CERVICAL CANCER SCREENING 06/23/2025 PAP SMEAR 06/23/2025 06/23/2022 Procedures Procedure Name Priority Date/Time Associated Diagnosis Comments IRON, TIBC, AND PERCENT SATURATION Routine 02/11/2025 10:59 AM CDT COMPREHENSIVE METABOLIC PANEL Routine 02/11/2025 10:41 AM CDT CBC WITH AUTODIFFERENTIAL Routine 2024 10:25 AM CDT from Last 3 Months Results * IRON, TIBC, AND PERCENT SATURATION (02/11/2025 10:59 AM CDT) Blood us Ethan Delgado MD CHEMISTRY ORDERABLES Final Resu lt * COMPREHENSIVE METABOLIC PANEL (02/11/2025 10:41 AM CDT) Blood Ethan Delgado MD CHEMISTRY ORDERABLES Final Resu lt * CBC WITH AUTODIFFERENTIAL (02/11/2025 10:25 AM CDT) Blood us Ethan Delgado MD HEMATOLOGY ORDERABLES Final Res ult from Last 3 Months Insurance Care Teams Application Services Manager Relationship Specialty Start Date End Date Gregg Martinez MD [address] [place] [phone] PCP - General Internal Medicine 01/06/20
--- OUTSIDE RECORDS SUMMARY | 2025-02-19 18:04 | XMS_ITS | Clinical Summary ---
Author Organization [facility] Address [address] [place] [address] Phone Care Team Providers Care Assistant Infant Toddler Teacher Name Role Phone Gregg Martinez MD Primary Care Provider [phone] Social History Tobacco Use Types Packs/Day Years [...] 19+ 3-dose series) 2005 Pap Smear 11/30/2007 Human Papillomavirus (HPV) Immunization (1 - 3-dose SCDM series) 2013 Cervical Cancer Screening (CCS) 2016 HPV/Cotest 2016 Influenza Immunization (#1) 2024 SARS-COV-2 Immunization ( season) 2024 Respiratory Syncytial Virus (RSV) Immunization (Adult) (1 - 1-dose 75+ series) 2061 Meningococcal Immunization (ACWY) Aged Out No longer eligible based on patient's age to complete this topic Pneumococcal Immunization Combined Aged Out No longer eligible based on patient's age to complete this topic Rotavirus Immunization Aged Out No lo nger eligible based on patient's age to complete this topic Insurance [facility] Care Teams Assistant Infant Toddler Teacher Relationship Specialty Start Date End Date Gregg Martinez MD [address] [place] [address] PCP - General Internal Medicine 09/20/23
--- OUTSIDE RECORDS SUMMARY | 2025-02-19 18:04 | XMS_ITS | Encounter Summary ---
Author Organization [facility] [employer] [facility] Address [address] [place] [address] Care Team Providers Care Finishing Machine Tender Name Role Phone Gregg Martinez MD Primary Care Provider [phone] Encounter Details Date Type Department Care Team ([facility] Contact Info) Description 02/12/2025 Orders Only [facility] Oncology and Hematology [place] [address] [place] [address] Ethan Delgado MD [facility] [employer] [address] [place] [phone] Social History Tobacco Use Types Packs/Day Years [...] Upcoming Encounters Date Type Department Care Team ([facility] Contact Info) Description 05/14/2025 3:30 PM CLINICAL EVALUATOR Office Visit [facility] Oncology and Hematology - [place] [address] [place] [address] Ethan Delgado MD [address] [employer] [address] [place] [phone] documented as of this encounter Procedures Procedure Name Priority Date/Time Associated Diagnosis Comments IRON, TIBC, AND PERCENT SATURATION Routine 02/11/2025 10:59 AM CDT COMPREHENSIVE METABOLIC PANEL Routine 02/11/2025 10:41 AM CDT CBC WITH AUTODIFFERENTIAL Routine 2024 10:25 AM CDT documented in this encounter Results * IRON, TIBC, AND PERCENT SATURATION (02/11/2025 10:59 AM CDT) Blood us Ethan Delgado MD CHEMISTRY ORDERABLES Final Resu lt * COMPREHENSIVE METABOLIC PANEL (02/11/2025 10:41 AM CDT) Blood us Ethan Delgado MD CHEMISTRY ORDERABLES Final Resu lt * CBC WITH AUTODIFFERENTIAL (02/11/2025 10:25 AM CDT) Blood us Ethan Delgado MD HEMATOLOGY ORDERABLES Final Res ult documented in this encounter Visit Diagnoses Not on filedocumented in this encounter Care Teams Finishing Machine Tender Relationship Specialty Start Date End Date Gregg Martinez MD [address] [place] [phone] PCP - General Internal Medicine 01/06/20 documented as of this encounter
== END 2025-02-19 17:44 | disposition home or self-care (01) ==
PROVIDERS: Emergency Provider Nurse Practitioner; PCP Internal Medicine
DX: M54.2 Cervicalgia (principal)
CPT/HCPCS: 99213; G0463